=== PATIENT | male | born 1955 | race Caucasian/White ===

== ENCOUNTER → 2018-01-13 | Outpatient (CLI) | payer OTHER ==
[~2018-01-13] MED LIST: ACET325 PO; ALBU90OI INH; ASCO500 PO; ASCORBIC ACID PO; ASPI81CH PO; Amlodipine Besyl5 MG PO; Augmentin 875-1 EACH PO; BUSP5 PO; CITA20 PO; Cleocin HCl150 MG PO; Culturelle1 CAP PO; DEEP SEA44 ML; DOCU100 PO; DOXY100 PO; FERR325 PO; FISH1000 PO; FLUT220OIA INH; FURO20 PO; GLIP5 PO; HYDR1TAB94 PO; Humulin R500 UNIT/1 SC; INSDET100 SC; INSUL100I SC; INSULANPEN; LEVSOD100 PO; LISI20 PO; LOPE2C PO; METO50 PO; MOME220I INH; Neosporin + P28.3 GM TOP; Norco 5-325 Ta1 EACH PO; SANTYL30 GM TOP; SENN187 PO; SIMV10 PO; SITA100T2 PO; TEMA7.5 PO; TRAZ50 PO; VITAMIN D PO; [UNRECOGNIZED DRUG - OTHER] PO
[2018-01-13 11:24] LABS: Source, Urine Voided
[2018-01-13 14:21] LABS: Bilirubin, Urine Neg (Neg); Glucose Qualitative, Urine Neg (Neg); Ketones, Urine Neg (Neg); Leukocyte Esterase, Urine Neg (Neg); Nitrite, Urine Neg (Neg); Protein, Urine 2+ (Neg); Urobilinogen, Urine NORM (Normal)
[2018-01-13 14:35] LABS: Appearance, Urine Clear (Clear); Blood, Urine Neg (Neg); Color, Urine Yellow (P-Yellow); pH, Urine 6.5 (5.0-8.0)
[2018-01-13 14:40] LABS: Bacteria Few /hpf; Red Blood Cells, Urine 0-2 /hpf (0-2); Squamous Epithelial Cells Few /hpf (Few); White Blood Cells, Urine 0-2 /hpf (0-5)
== END | disposition home or self-care (01) ==
LOC: LAB 11:20
PROVIDERS: Family Medicine
DX: N39.0 Urinary tract infection, site not specified (principal)
CPT/HCPCS: 81001

== ENCOUNTER 2018-01-18 16:37 | Inpatient (IN) | payer OTHER ==
[~2018-01-18] VITALS: Ht 167.6 cm; Wt 113.7 kg
[~2018-01-18 16:37] MED LIST changes: -ASCO500 PO; -Cleocin HCl150 MG PO; -Culturelle1 CAP PO; -DEEP SEA44 ML; -DOXY100 PO; -HYDR1TAB94 PO; -Humulin R500 UNIT/1 SC; -INSDET100 SC; -MOME220I INH; -Neosporin + P28.3 GM TOP; -SANTYL30 GM TOP
[2018-01-18 18:02] LABS: BASOPHILS ABSOLUTE AUTO 0.09 K/mm3 (0.00-0.23); BASOPHILS PERCENT AUTO 1 % (0-2); EOSINOPHILS ABSOLUTE AUTO 0.37 K/mm3 (0.00-0.68); EOSINOPHILS PERCENT AUTO 3 % (0-6); Hematocrit 43.5 % (37.0-53.0); Hemoglobin 14.7 g/dL (13.5-17.5); IMMATURE GRAN PERCENT AUTO 1 % (0-1); LYMPHOCYTES ABSOLUTE AUTO 2.64 K/mm3 (0.84-5.20); LYMPHOCYTES PERCENT AUTO 24 % (21-46); MONOCYTES ABSOLUTE AUTO 0.93 K/mm3 (0.16-1.47); MONOCYTES PERCENT AUTO 8 % (4-13); Mean Corpuscular HGB 31.1 pg (26.0-34.0); Mean Corpuscular HGB Conc 33.8 g/dL (31.5-36.5); Mean Corpuscular Volume 92 fL (80-100); Mean Platelet Volume 9.5 fL (9.1-12.4); NEUTROPHILS ABSOLUTE AUTO 7.07 K/mm3 (1.96-9.15); NEUTROPHILS PERCENT AUTO 63 % (41-73); Platelet Count 172 K/mm3 (150-400); RDW Coefficient Variation 12.8 % (11.7-14.2); RDW Standard Deviation 43.1 fL (35.1-46.3); Red Blood Cell Count 4.73 M/mm3 (4.30-5.90)
[2018-01-18 21:23] LABS: Albumin, Blood 3.1 g/dL (3.4-5.0); Albumin/Globulin Ratio 0.7 (0.8-1.8); Bilirubin, Total 0.7 mg/dL (0.1-1.0); Bun/Creatinine Ratio 14.8 (12.0-20.0); Calcium, Blood 8.6 mg/dL (8.5-10.1); Creatinine, Blood 1.35 mg/dL (0.60-1.20); Globulin, Blood 4.5 g/dL (2.2-4.0); Potassium, Blood 4.6 mmol/L (3.5-5.5); Total Protein, Blood 7.6 g/dL (6.4-8.2)
[2018-01-19] MEDS ORDERED: ASCO500 PO (10:37)
[2018-01-19] MEDS ORDERED: DEEP SEA44 ML (10:40)
[2018-01-19] MEDS ORDERED: Neosporin + P28.3 GM TOP (10:40)
[2018-01-20 05:14] LABS: BASOPHILS ABSOLUTE AUTO 0.07 K/mm3 (0.00-0.23); BASOPHILS PERCENT AUTO 1 % (0-2); EOSINOPHILS PERCENT AUTO 4 % (0-6); Hematocrit 40.3 % (37.0-53.0); Hemoglobin 13.7 g/dL (13.5-17.5); IMMATURE GRAN ABSOLUTE AUTO 0.09 K/mm3 (0.00-0.10); IMMATURE GRAN PERCENT AUTO 1 % (0-1); LYMPHOCYTES ABSOLUTE AUTO 1.91 K/mm3 (0.84-5.20); LYMPHOCYTES PERCENT AUTO 25 % (21-46); MONOCYTES ABSOLUTE AUTO 0.71 K/mm3 (0.16-1.47); MONOCYTES PERCENT AUTO 9 % (4-13); Mean Corpuscular HGB 31.4 pg (26.0-34.0); Mean Corpuscular Volume 92 fL (80-100); Mean Platelet Volume 9.2 fL (9.1-12.4); NEUTROPHILS ABSOLUTE AUTO 4.56 K/mm3 (1.96-9.15); NEUTROPHILS PERCENT AUTO 60 % (41-73); Platelet Count 140 K/mm3 (150-400); RDW Coefficient Variation 12.6 % (11.7-14.2); RDW Standard Deviation 42.5 fL (35.1-46.3); Red Blood Cell Count 4.37 M/mm3 (4.30-5.90); White Blood Cell Count 7.64 K/mm3 (4.00-11.30)
[2018-01-20 05:41] LABS: Albumin, Blood 2.6 g/dL (3.4-5.0); Anion Gap 6 mmol/L (6-16); Blood Urea Nitrogen 18 mg/dL (8-24); CO2, Blood 26 mmol/L (21-32); Calcium, Blood 8.3 mg/dL (8.5-10.1); Chloride, Blood 104 mmol/L (98-108); Glomerular Filtration Rate >60 (60-); Glucose, Blood 100 mg/dL (70-99); Phosphorus, Blood 2.7 mg/dL (2.5-4.9); Potassium, Blood 4.5 mmol/L (3.5-5.5); Sodium, Blood 136 mmol/L (136-145)
[2018-01-20 06:03] LABS: Vancomycin, Trough 20.9 ug/mL (5.0-10.0)
[2018-01-21 05:38] LABS: BASOPHILS ABSOLUTE AUTO 0.05 K/mm3 (0.00-0.23); BASOPHILS PERCENT AUTO 1 % (0-2); EOSINOPHILS ABSOLUTE AUTO 0.27 K/mm3 (0.00-0.68); EOSINOPHILS PERCENT AUTO 5 % (0-6); Hematocrit 38.4 % (37.0-53.0); Hemoglobin 12.9 g/dL (13.5-17.5); IMMATURE GRAN ABSOLUTE AUTO 0.05 K/mm3 (0.00-0.10); IMMATURE GRAN PERCENT AUTO 1 % (0-1); LYMPHOCYTES ABSOLUTE AUTO 1.74 K/mm3 (0.84-5.20); LYMPHOCYTES PERCENT AUTO 29 % (21-46); MONOCYTES ABSOLUTE AUTO 0.55 K/mm3 (0.16-1.47); MONOCYTES PERCENT AUTO 9 % (4-13); Mean Corpuscular HGB 31.1 pg (26.0-34.0); Mean Corpuscular HGB Conc 33.6 g/dL (31.5-36.5); Mean Corpuscular Volume 93 fL (80-100); Mean Platelet Volume 9.2 fL (9.1-12.4); NEUTROPHILS ABSOLUTE AUTO 3.34 K/mm3 (1.96-9.15); NEUTROPHILS PERCENT AUTO 56 % (41-73); Platelet Count 142 K/mm3 (150-400); RDW Coefficient Variation 12.6 % (11.7-14.2); RDW Standard Deviation 42.9 fL (35.1-46.3); Red Blood Cell Count 4.15 M/mm3 (4.30-5.90)
[2018-01-21 06:00] LABS: Bun/Creatinine Ratio 12.9 (12.0-20.0); Calcium, Blood 8.2 mg/dL (8.5-10.1); Creatinine, Blood 1.32 mg/dL (0.60-1.20); Potassium, Blood 4.2 mmol/L (3.5-5.5)
[2018-01-22] MEDS ORDERED: SANTYL30 GM TOP (10:19)
[2018-01-22] MEDS ORDERED: INSDET100 SC (10:20)
[2018-01-22] MEDS ORDERED: HYDR1TAB94 PO (10:22)
[2018-01-22] MEDS ORDERED: Humulin R500 UNIT/1 SC (10:25)
[2018-01-22] MEDS ORDERED: MOME220I INH (10:26)
[2018-01-22] MEDS ORDERED: Cleocin HCl150 MG PO (10:27)
[2018-01-22] MEDS ORDERED: DOXY100 PO (10:28)
[2018-01-22] MEDS ORDERED: Culturelle1 CAP PO (10:30)
== END 2018-01-22 12:58 | disposition home health service (06) | DRG 603 ==
LOC: ER 16:37 → MEDS 21:01 → ENPENDDIS 01-22 10:13 → MEDS 01-22 12:58
PROVIDERS: Emergency Medicine; Internal Medicine; Physician Assistant
DX: L03.115 Cellulitis of right lower limb (principal); N17.9 Acute kidney failure, unspecified; Z68.41 Body mass index [BMI] 40.0-44.9, adult; F70 Mild intellectual disabilities; I10 Essential (primary) hypertension; E03.9 Hypothyroidism, unspecified; E78.5 Hyperlipidemia, unspecified; J45.909 Unspecified asthma, uncomplicated; E11.621 Type 2 diabetes mellitus with foot ulcer; L97.519 Non-pressure chronic ulcer of other part of right foot with unspecified severity; F32.9 Major depressive disorder, single episode, unspecified; E66.01 Morbid (severe) obesity due to excess calories; E11.42 Type 2 diabetes mellitus with diabetic polyneuropathy; E11.610 Type 2 diabetes mellitus with diabetic neuropathic arthropathy
CPT/HCPCS: 36415; 73630; 80048; 80053; 80069; 80202; 82947; 85025; 85651; 86140; 87070; 87075; 87205; 94640; 94760; 96365; 96366; 99285; A9270; J0696; J1650; J1815; J3370; J7050

== ENCOUNTER → 2020-09-03 | Outpatient (CLI) | payer OTHER ==
[~2020-09-03] MED LIST changes: +AMLO5 PO; +ASCO500 PO; +ATOR40TA PO; +Aspirin EC81 MG PO; +BASAGLAR K100 UNIT/1 SC; +BISA10S PR; +Cleocin HCl150 MG PO; +Culturelle1 CAP PO; +DEEP SEA44 ML; +DOXY100 PO; +Flovent 220 Ora12 GM INH; +HUMALOG KW100 UNIT/1; +HYDR1TAB94 PO; +Humulin R500 UNIT/1 SC; +INSDET100 SC; +METO10 PO; +MIRALAX17 GM PO; +MOME220I INH; +NYSTOP15 GM TOP; +Neosporin + P28.3 GM TOP; +PANT40 PO; +PROAIR DIGIHAL90 MCG; +RESVERATROL50 MG PO; +SANTYL30 GM TOP; +SENNA LAXATIVE8.6 MG PO; +Zestril30 MG PO
[2020-09-03 19:02] LABS: Hematocrit 41.7 % (37.0-53.0); Hemoglobin 13.5 g/dL (13.5-17.5); Mean Corpuscular HGB 30.3 pg (26.0-34.0); Mean Corpuscular HGB Conc 32.4 g/dL (31.5-36.5); Mean Corpuscular Volume 94 fL (80-100); Mean Platelet Volume 9.7 fL (9.1-12.4); Platelet Count 128 K/mm3 (150-400); RDW Coefficient Variation 13.2 % (11.7-14.2); RDW Standard Deviation 44.9 fL (35.1-46.3); Red Blood Cell Count 4.45 M/mm3 (4.30-5.90); White Blood Cell Count 7.74 K/mm3 (4.00-11.30)
[2020-09-03 19:15] LABS: Alanine Aminotransfer (ALT/SGP 22 U/L (12-78); Albumin, Blood 3.1 g/dL (3.4-5.0); Albumin/Globulin Ratio 0.8 (0.8-1.8); Alk Phos 134 U/L (50-136); Anion Gap 4 mmol/L (6-16); Aspartate Aminotrans (AST/SGOT 14 U/L (12-37); Bilirubin, Total 0.5 mg/dL (0.1-1.0); Blood Urea Nitrogen 17 mg/dL (8-24); Bun/Creatinine Ratio 15.3 (12.0-20.0); CO2, Blood 32 mmol/L (21-32); Calcium, Blood 8.8 mg/dL (8.5-10.1); Chloride, Blood 106 mmol/L (98-108); Creatinine, Blood 1.11 mg/dL (0.60-1.20); Globulin, Blood 3.7 g/dL (2.2-4.0); Glomerular Filtration Rate >60 (60-); Glucose, Blood 195 mg/dL (70-99); Potassium, Blood 4.1 mmol/L (3.5-5.5); Sodium, Blood 142 mmol/L (136-145); Total Protein, Blood 6.8 g/dL (6.4-8.2)
== END | disposition home or self-care (01) ==
LOC: EDSTATUS 11:49 → LAB UVN 17:58
PROVIDERS: Internal Medicine Cardiovascular Disease
DX: U07.1 COVID-19 (principal)
CPT/HCPCS: 80053; 82306; 85027

== ENCOUNTER → 2020-11-01 | Outpatient (CLI) | payer OTHER ==
[~2020-11-01] MED LIST changes: +ABAT250V; +ATORVASTATIN CA40 M1 PO; +BISA10S; +METO5A PO; +NOVOLOG FL100 UNIT/3 SC; +RESVERATROL50 MG; +SITA100T2
== END | disposition home or self-care (01) ==
LOC: LAB UVN 07:20 → EDSTATUS 12:38
DX: E55.9 Vitamin D deficiency, unspecified (principal)
CPT/HCPCS: 82306

== ENCOUNTER → 2020-12-03 | Outpatient (CLI) | payer OTHER | END | disposition home or self-care (01) | LOC: LAB UVN 08:34 → LAB 08:34 → EDSTATUS 12:52 | DX: E55.9 Vitamin D deficiency, unspecified (principal) | CPT/HCPCS: 82306 ==

== ENCOUNTER → 2021-01-29 | Outpatient (CLI) | payer OTHER ==
[2021-01-29 06:10] LABS: Hematocrit 38.8 % (37.0-53.0); Hemoglobin 13.3 g/dL (13.5-17.5); Mean Corpuscular HGB 31.1 pg (26.0-34.0); Mean Corpuscular HGB Conc 34.3 g/dL (31.5-36.5); Mean Corpuscular Volume 91 fL (80-100); Mean Platelet Volume 9.6 fL (9.1-12.4); Platelet Count 104 K/mm3 (150-400); RDW Coefficient Variation 13.2 % (11.7-14.2); RDW Standard Deviation 43.7 fL (35.1-46.3); Red Blood Cell Count 4.27 M/mm3 (4.30-5.90)
[2021-01-29 06:26] LABS: Anion Gap 3 mmol/L (6-16); Blood Urea Nitrogen 17 mg/dL (8-24); Bun/Creatinine Ratio 14.5 (12.0-20.0); CO2, Blood 31 mmol/L (21-32); Calcium, Blood 7.8 mg/dL (8.5-10.1); Chloride, Blood 109 mmol/L (98-108); Creatinine, Blood 1.17 mg/dL (0.60-1.20); Glomerular Filtration Rate >60 (60-); Glucose, Blood 112 mg/dL (70-99); Sodium, Blood 143 mmol/L (136-145)
== END | disposition home or self-care (01) ==
LOC: LAB UVN 05:00 → EDSTATUS 08:12
PROVIDERS: Internal Medicine
DX: E11.9 Type 2 diabetes mellitus without complications (principal); E03.9 Hypothyroidism, unspecified; D64.9 Anemia, unspecified
CPT/HCPCS: 80048; 83036; 84443; 85027

== ENCOUNTER → 2021-06-26 | Outpatient (CLI) | payer OTHER ==
[2021-06-26 12:42] LABS: Appearance, Urine Hazy (Clear); Bilirubin, Urine Neg (Neg); Blood, Urine 5+ (Neg); Color, Urine Amber (P-Yellow); Glucose Qualitative, Urine 3+ (Neg); Ketones, Urine Neg (Neg); Leukocyte Esterase, Urine Neg (Neg); Nitrite, Urine Neg (Neg); Protein, Urine 3+ (Neg); Specific Gravity, Urine 1.025 (1.003-1.022); Urobilinogen, Urine 1+ (Normal)
[2021-06-26 13:15] LABS: Bacteria Not Seen /hpf; Red Blood Cells, Urine TNTC /hpf (0-2); Squamous Epithelial Cells Not Seen /hpf (Few); White Blood Cells, Urine Not Seen /hpf (0-5)
== END | disposition home or self-care (01) ==
LOC: EDSTATUS 10:23 → LAB UVN 12:28
PROVIDERS: Internal Medicine
DX: N39.0 Urinary tract infection, site not specified (principal)
CPT/HCPCS: 81001; 87086

== ENCOUNTER 2021-06-28 09:55 | Emergency (ER) | payer OTHER ==
[~2021-06-28] VITALS: Ht 180.3 cm; Wt 136.1 kg
[2021-06-28 11:00] LABS: BASOPHILS ABSOLUTE AUTO 0.04 K/mm3 (0.00-0.23); BASOPHILS PERCENT AUTO 0 % (0-2); EOSINOPHILS PERCENT AUTO 2 % (0-6); Hematocrit 40.6 % (37.0-53.0); IMMATURE GRAN ABSOLUTE AUTO 0.08 K/mm3 (0.00-0.10); IMMATURE GRAN PERCENT AUTO 1 % (0-1); LYMPHOCYTES ABSOLUTE AUTO 1.46 K/mm3 (0.84-5.20); LYMPHOCYTES PERCENT AUTO 14 % (21-46); MONOCYTES ABSOLUTE AUTO 0.85 K/mm3 (0.16-1.47); MONOCYTES PERCENT AUTO 8 % (4-13); Mean Corpuscular HGB 31.6 pg (26.0-34.0); Mean Corpuscular HGB Conc 34.5 g/dL (31.5-36.5); Mean Corpuscular Volume 92 fL (80-100); Mean Platelet Volume 9.5 fL (9.1-12.4); NEUTROPHILS ABSOLUTE AUTO 7.82 K/mm3 (1.96-9.15); NEUTROPHILS PERCENT AUTO 75 % (41-73); Platelet Count 113 K/mm3 (150-400); RDW Coefficient Variation 13.2 % (11.7-14.2); RDW Standard Deviation 44.3 fL (35.1-46.3); Red Blood Cell Count 4.43 M/mm3 (4.30-5.90); White Blood Cell Count 10.45 K/mm3 (4.00-11.30)
[2021-06-28 11:20] LABS: International Normalized Ratio 1.07; Prothrombin Time Results 11.5 Sec (9.7-11.5)
[2021-06-28 11:29] LABS: Albumin, Blood 2.7 g/dL (3.4-5.0); Albumin/Globulin Ratio 0.7 (0.8-1.8); Bilirubin, Direct 0.3 mg/dL (0.0-0.3); Bilirubin, Indirect 0.7 mg/dL (0.1-0.7); Bun/Creatinine Ratio 14.5 (12.0-20.0); Calcium, Blood 7.8 mg/dL (8.5-10.1); Creatinine, Blood 1.52 mg/dL (0.60-1.20); Globulin, Blood 3.9 g/dL (2.2-4.0); Potassium, Blood 4.1 mmol/L (3.5-5.5); Total Protein, Blood 6.6 g/dL (6.4-8.2)
[2021-06-28 13:22] LABS: Source, Urine Clean Catch
[2021-06-28 13:30] LABS: Appearance, Urine Cloudy (Clear); Blood, Urine 5+ (Neg); Color, Urine Red (P-Yellow); Glucose Qualitative, Urine Neg (Neg); Ketones, Urine Neg (Neg); Leukocyte Esterase, Urine 2+ (Neg); Nitrite, Urine Pos (Neg); Protein, Urine 4+ (Neg); Urobilinogen, Urine 1+ (Normal)
[2021-06-28 14:12] LABS: Bilirubin, Urine 1+ (Neg)
[2021-06-28 14:13] LABS: Red Blood Cells, Urine TNTC /hpf (0-2)
[2021-06-28 14:15] LABS: Amorphous Light (0-Heavy); Bacteria Few /hpf; Squamous Epithelial Cells Few /hpf (Few)
== END 2021-06-28 16:11 ==
LOC: ER 09:55
PROVIDERS: Student in an Organized Health Care Education/Training Program
DX: R31.9 Hematuria, unspecified (principal); R33.9 Retention of urine, unspecified; N32.9 Bladder disorder, unspecified; I10 Essential (primary) hypertension; E11.9 Type 2 diabetes mellitus without complications; K21.9 Gastro-esophageal reflux disease without esophagitis; J44.9 Chronic obstructive pulmonary disease, unspecified; Z79.899 Other long term (current) drug therapy; Z79.82 Long term (current) use of aspirin; Z79.4 Long term (current) use of insulin; Z86.73 Personal history of transient ischemic attack (TIA), and cerebral infarction without residual deficits
CPT/HCPCS: 51700; 51702; 74177; 80048; 80076; 81001; 83605; 83690; 85025; 85610; 85730; 99284-25; Q9967

== ENCOUNTER → 2021-06-28 | Outpatient (CLI) | payer OTHER ==
[2021-06-28 02:21] LABS: BASOPHILS ABSOLUTE AUTO 0.05 K/mm3 (0.00-0.23); BASOPHILS PERCENT AUTO 0 % (0-2); EOSINOPHILS ABSOLUTE AUTO 0.19 K/mm3 (0.00-0.68); EOSINOPHILS PERCENT AUTO 2 % (0-6); Hematocrit 40.7 % (37.0-53.0); Hemoglobin 14.3 g/dL (13.5-17.5); IMMATURE GRAN ABSOLUTE AUTO 0.09 K/mm3 (0.00-0.10); IMMATURE GRAN PERCENT AUTO 1 % (0-1); LYMPHOCYTES ABSOLUTE AUTO 1.25 K/mm3 (0.84-5.20); LYMPHOCYTES PERCENT AUTO 11 % (21-46); MONOCYTES ABSOLUTE AUTO 0.82 K/mm3 (0.16-1.47); MONOCYTES PERCENT AUTO 7 % (4-13); Mean Corpuscular HGB 31.6 pg (26.0-34.0); Mean Corpuscular HGB Conc 35.1 g/dL (31.5-36.5); Mean Corpuscular Volume 90 fL (80-100); Mean Platelet Volume 9.6 fL (9.1-12.4); NEUTROPHILS ABSOLUTE AUTO 9.42 K/mm3 (1.96-9.15); NEUTROPHILS PERCENT AUTO 80 % (41-73); Platelet Count 118 K/mm3 (150-400); RDW Coefficient Variation 12.9 % (11.7-14.2); RDW Standard Deviation 42.5 fL (35.1-46.3); Red Blood Cell Count 4.53 M/mm3 (4.30-5.90); White Blood Cell Count 11.82 K/mm3 (4.00-11.30)
[2021-06-28 02:38] LABS: Albumin, Blood 2.9 g/dL (3.4-5.0); Albumin/Globulin Ratio 0.7 (0.8-1.8); Bilirubin, Total 0.9 mg/dL (0.1-1.0); Bun/Creatinine Ratio 16.1 (12.0-20.0); Calcium, Blood 8.2 mg/dL (8.5-10.1); Creatinine, Blood 1.24 mg/dL (0.60-1.20); Globulin, Blood 3.9 g/dL (2.2-4.0); Total Protein, Blood 6.8 g/dL (6.4-8.2)
== END | disposition home or self-care (01) ==
LOC: LAB UVN 02:14 → EDSTATUS 10:24
PROVIDERS: Internal Medicine
DX: I69.354 Hemiplegia and hemiparesis following cerebral infarction affecting left non-dominant side (principal)
CPT/HCPCS: 80053; 85025

== ENCOUNTER → 2021-07-08 | Outpatient (CLI) | payer OTHER ==
[2021-07-08 16:17] LABS: BASOPHILS ABSOLUTE AUTO 0.05 K/mm3 (0.00-0.23); BASOPHILS PERCENT AUTO 1 % (0-2); EOSINOPHILS ABSOLUTE AUTO 0.21 K/mm3 (0.00-0.68); EOSINOPHILS PERCENT AUTO 2 % (0-6); Hematocrit 38.9 % (37.0-53.0); Hemoglobin 13.3 g/dL (13.5-17.5); IMMATURE GRAN ABSOLUTE AUTO 0.11 K/mm3 (0.00-0.10); IMMATURE GRAN PERCENT AUTO 1 % (0-1); LYMPHOCYTES ABSOLUTE AUTO 1.53 K/mm3 (0.84-5.20); LYMPHOCYTES PERCENT AUTO 17 % (21-46); MONOCYTES ABSOLUTE AUTO 0.68 K/mm3 (0.16-1.47); MONOCYTES PERCENT AUTO 8 % (4-13); Mean Corpuscular HGB 31.2 pg (26.0-34.0); Mean Corpuscular HGB Conc 34.2 g/dL (31.5-36.5); Mean Corpuscular Volume 91 fL (80-100); Mean Platelet Volume 9.7 fL (9.1-12.4); NEUTROPHILS PERCENT AUTO 72 % (41-73); Platelet Count 157 K/mm3 (150-400); RDW Coefficient Variation 13.4 % (11.7-14.2); RDW Standard Deviation 45.1 fL (35.1-46.3); Red Blood Cell Count 4.26 M/mm3 (4.30-5.90); White Blood Cell Count 9.08 K/mm3 (4.00-11.30)
[2021-07-08 16:43] LABS: Bun/Creatinine Ratio 15.2 (12.0-20.0); Calcium, Blood 8.1 mg/dL (8.5-10.1); Creatinine, Blood 1.64 mg/dL (0.60-1.20); Potassium, Blood 5.2 mmol/L (3.5-5.5)
== END | disposition home or self-care (01) ==
LOC: EDSTATUS 10:26 → LAB UVN 16:07
PROVIDERS: Internal Medicine
DX: I69.354 Hemiplegia and hemiparesis following cerebral infarction affecting left non-dominant side (principal); R60.9 Edema, unspecified
CPT/HCPCS: 80048; 85025

== ENCOUNTER → 2021-07-15 | Outpatient (CLI) | payer OTHER ==
[2021-07-15 11:28] LABS: Anion Gap 5 mmol/L (6-16); Blood Urea Nitrogen 20 mg/dL (8-24); Bun/Creatinine Ratio 17.7 (12.0-20.0); CO2, Blood 28 mmol/L (21-32); Chloride, Blood 103 mmol/L (98-108); Creatinine, Blood 1.13 mg/dL (0.60-1.20); Glomerular Filtration Rate >60 (60-); Glucose, Blood 140 mg/dL (70-99); Potassium, Blood 3.9 mmol/L (3.5-5.5); Sodium, Blood 136 mmol/L (136-145)
== END | disposition home or self-care (01) ==
LOC: LAB UVN 09:20 → EDSTATUS 10:27
PROVIDERS: Internal Medicine
DX: I69.354 Hemiplegia and hemiparesis following cerebral infarction affecting left non-dominant side (principal)
CPT/HCPCS: 80048

== ENCOUNTER 2021-08-25 05:27 | Emergency (ER) | payer OTHER ==
[~2021-08-25] VITALS: Ht 175.3 cm; Wt 90.7 kg
== END 2021-08-25 10:29 | disposition home or self-care (01) ==
LOC: ER 05:27
DX: S06.9X9A Unspecified intracranial injury with loss of consciousness of unspecified duration, initial encounter (principal); S01.312A Laceration without foreign body of left ear, initial encounter; E11.9 Type 2 diabetes mellitus without complications; K21.9 Gastro-esophageal reflux disease without esophagitis; E78.00 Pure hypercholesterolemia, unspecified; I10 Essential (primary) hypertension; J44.9 Chronic obstructive pulmonary disease, unspecified; Z79.899 Other long term (current) drug therapy; W06.XXXA Fall from bed, initial encounter
CPT/HCPCS: 12011; 70450; 72125; 99284-25

== ENCOUNTER → 2021-11-19 | Outpatient (CLI) | payer OTHER ==
[2021-11-19 07:01] LABS: Albumin, Blood 2.9 g/dL (3.4-5.0); Albumin/Globulin Ratio 0.6 (0.8-1.8); Bilirubin, Total 0.4 mg/dL (0.1-1.0); Bun/Creatinine Ratio 24.2 (12.0-20.0); Calcium, Blood 8.7 mg/dL (8.5-10.1); Creatinine, Blood 2.15 mg/dL (0.60-1.20); Globulin, Blood 4.5 g/dL (2.2-4.0); Potassium, Blood 5.3 mmol/L (3.5-5.5); Thyroid Stimulating Hormone 3.99 uIU/mL (0.360-4.800); Total Protein, Blood 7.4 g/dL (6.4-8.2)
== END | disposition home or self-care (01) ==
LOC: LAB UVN 05:30 → EDSTATUS 11:04
PROVIDERS: Internal Medicine
DX: N18.9 Chronic kidney disease, unspecified (principal); E78.5 Hyperlipidemia, unspecified
CPT/HCPCS: 80053; 84443

== ENCOUNTER → 2021-12-05 | Outpatient (CLI) | payer OTHER ==
[2021-12-05 21:53] LABS: Bilirubin, Urine Neg (Neg); Blood, Urine 2+ (Neg); Glucose Qualitative, Urine Neg (Neg); Ketones, Urine Neg (Neg); Leukocyte Esterase, Urine 1+ (Neg); Nitrite, Urine Neg (Neg); Protein, Urine 2+ (Neg); Urobilinogen, Urine 1+ (Normal)
[2021-12-05 22:43] LABS: Color, Urine Pale Yellow (P-Yellow)
[2021-12-05 22:44] LABS: Appearance, Urine Hazy (Clear); Bacteria Few /hpf; Squamous Epithelial Cells Rare /hpf (Few)
== END | disposition home or self-care (01) ==
LOC: EDSTATUS 11:05 → LAB UVN 20:00
PROVIDERS: Internal Medicine
DX: N39.0 Urinary tract infection, site not specified (principal)
CPT/HCPCS: 81001; 87086

== ENCOUNTER → 2021-12-09 | Outpatient (CLI) | payer OTHER ==
[2021-12-09 16:02] LABS: Hematocrit 41.1 % (37.0-53.0); Hemoglobin 13.8 g/dL (13.5-17.5); Mean Corpuscular HGB 30.5 pg (26.0-34.0); Mean Corpuscular HGB Conc 33.6 g/dL (31.5-36.5); Mean Corpuscular Volume 91 fL (80-100); Mean Platelet Volume 9.9 fL (9.1-12.4); Platelet Count 147 K/mm3 (150-400); RDW Coefficient Variation 13.8 % (11.7-14.2); RDW Standard Deviation 46.2 fL (35.1-46.3); Red Blood Cell Count 4.52 M/mm3 (4.30-5.90); White Blood Cell Count 7.81 K/mm3 (4.00-11.30)
[2021-12-09 16:56] LABS: Alanine Aminotransfer (ALT/SGP 17 U/L (12-78); Albumin, Blood 2.8 g/dL (3.4-5.0); Albumin/Globulin Ratio 0.8 (0.8-1.8); Alk Phos 120 U/L (50-136); Anion Gap 4 mmol/L (6-16); Aspartate Aminotrans (AST/SGOT 9 U/L (12-37); Bilirubin, Total 0.6 mg/dL (0.1-1.0); Blood Urea Nitrogen 19 mg/dL (8-24); Bun/Creatinine Ratio 17.1 (12.0-20.0); CO2, Blood 29 mmol/L (21-32); Calcium, Blood 8.2 mg/dL (8.5-10.1); Chloride, Blood 104 mmol/L (98-108); Creatinine, Blood 1.11 mg/dL (0.60-1.20); Globulin, Blood 3.5 g/dL (2.2-4.0); Glomerular Filtration Rate >60 (60-); Glucose, Blood 174 mg/dL (70-99); Potassium, Blood 4.1 mmol/L (3.5-5.5); Sodium, Blood 137 mmol/L (136-145); Total Protein, Blood 6.3 g/dL (6.4-8.2)
== END | disposition home or self-care (01) ==
LOC: EDSTATUS 11:07 → LAB UVN 15:11
PROVIDERS: Internal Medicine
DX: I10 Essential (primary) hypertension (principal); R93.9 Diagnostic imaging inconclusive due to excess body fat of patient
CPT/HCPCS: 80053; 85027

== ENCOUNTER → 2022-03-11 | Outpatient (CLI) | payer OTHER ==
[2022-03-11 17:21] LABS: Source, Urine Clean Catch
[2022-03-11 17:36] LABS: Appearance, Urine Clear (Clear); Bilirubin, Urine Neg (Neg); Blood, Urine Neg (Neg); Color, Urine Yellow (P-Yellow); Glucose Qualitative, Urine Neg (Neg); Ketones, Urine Neg (Neg); Leukocyte Esterase, Urine Neg (Neg); Nitrite, Urine Neg (Neg); Protein, Urine 2+ (Neg); Urobilinogen, Urine 2+ (Normal)
[2022-03-11 18:06] LABS: Bacteria Rare /hpf; Red Blood Cells, Urine 0-2 /hpf (0-2); Squamous Epithelial Cells Rare /hpf (Few); White Blood Cells, Urine 0-2 /hpf (0-5)
== END | disposition home or self-care (01) ==
LOC: EDSTATUS 12:35 → LAB UVN 17:20
PROVIDERS: Internal Medicine
DX: N39.0 Urinary tract infection, site not specified (principal)
CPT/HCPCS: 81001

== ENCOUNTER 2023-08-12 19:21 | Emergency (ER) | payer OTHER ==
[~2023-08-12] VITALS: Ht 170.2 cm; Wt 97.5 kg
[2023-08-12 19:25] VITALS: BP 153/75
== END 2023-08-12 20:37 | disposition home or self-care (01) ==
LOC: ER 19:21
DX: S91.311A Laceration without foreign body, right foot, initial encounter (principal); W22.8XXA Striking against or struck by other objects, initial encounter; Z79.899 Other long term (current) drug therapy; Z79.4 Long term (current) use of insulin; Z79.82 Long term (current) use of aspirin; I10 Essential (primary) hypertension; E11.9 Type 2 diabetes mellitus without complications; K21.9 Gastro-esophageal reflux disease without esophagitis; E78.00 Pure hypercholesterolemia, unspecified; J44.9 Chronic obstructive pulmonary disease, unspecified
CPT/HCPCS: 12001; 99283-25

== ENCOUNTER 2023-10-24 18:15 | Emergency (ER) | payer OTHER ==
[~2023-10-24] VITALS: Ht 177.8 cm; Wt 97.5 kg
[2023-10-24 19:56] VITALS: BP 126/86
== END 2023-10-24 21:38 | disposition home or self-care (01) ==
LOC: ER 18:15
DX: S90.112A Contusion of left great toe without damage to nail, initial encounter (principal); S90.111A Contusion of right great toe without damage to nail, initial encounter; W06.XXXA Fall from bed, initial encounter; Z79.899 Other long term (current) drug therapy; Z79.82 Long term (current) use of aspirin; Z79.4 Long term (current) use of insulin; I10 Essential (primary) hypertension; E11.9 Type 2 diabetes mellitus without complications; K21.9 Gastro-esophageal reflux disease without esophagitis; E78.00 Pure hypercholesterolemia, unspecified; J44.9 Chronic obstructive pulmonary disease, unspecified
CPT/HCPCS: 73620; 99285-25

== ENCOUNTER 2024-11-13 23:19 | Inpatient (IN) | payer OTHER ==
[~2024-11-13] VITALS: Ht 182.9 cm; Wt 124.6 kg
[2024-11-13] MEDS ORDERED: NS 1,000 ML IV ONE (23:43)
[2024-11-13 23:44] LABS: BASOPHILS ABSOLUTE AUTO 0.07 K/mm3 (0.00-0.23); BASOPHILS PERCENT AUTO 0 % (0-2); EOSINOPHILS ABSOLUTE AUTO 0.01 K/mm3 (0.00-0.68); EOSINOPHILS PERCENT AUTO 0 % (0-6); Hematocrit 47.9 % (37.0-53.0); Hemoglobin 15.9 g/dL (13.5-17.5); IMMATURE GRAN ABSOLUTE AUTO 0.19 K/mm3 (0.00-0.10); IMMATURE GRAN PERCENT AUTO 1 % (0-1); LYMPHOCYTES ABSOLUTE AUTO 1.39 K/mm3 (0.84-5.20); LYMPHOCYTES PERCENT AUTO 6 % (21-46); MONOCYTES ABSOLUTE AUTO 1.31 K/mm3 (0.16-1.47); MONOCYTES PERCENT AUTO 5 % (4-13); Mean Corpuscular HGB 30.3 pg (26.0-34.0); Mean Corpuscular HGB Conc 33.2 g/dL (31.5-36.5); Mean Corpuscular Volume 91 fL (80-100); Mean Platelet Volume 9.7 fL (9.1-12.4); NEUTROPHILS ABSOLUTE AUTO 21.39 K/mm3 (1.96-9.15); NEUTROPHILS PERCENT AUTO 88 % (41-73); Platelet Count 190 K/mm3 (150-400); RDW Coefficient Variation 13.9 % (11.7-14.2); RDW Standard Deviation 46.7 fL (35.1-46.3); Red Blood Cell Count 5.24 M/mm3 (4.30-5.90); White Blood Cell Count 24.36 K/mm3 (4.00-11.30)
[2024-11-13] MEDS ORDERED: NS 1,000 ML IV SCH (23:45)
[2024-11-14] VITALS (30 sets, daily range): BP systolic 80–132; BP diastolic 40–78
[2024-11-14 00:04] LABS: Albumin/Globulin Ratio 0.7 (0.8-1.8); Bilirubin, Total 0.6 mg/dL (0.1-1.0); Bun/Creatinine Ratio 23.8 (12.0-20.0); Creatinine, Blood 2.48 mg/dL (0.60-1.20); Globulin, Blood 4.2 g/dL (2.2-4.0); Potassium, Blood 4.6 mmol/L (3.5-5.5); Total Protein, Blood 7.2 g/dL (6.4-8.2)
[2024-11-14 00:38] LABS: International Normalized Ratio 1.06; Prothrombin Time Results 11.3 Sec (9.7-11.5)
[2024-11-14 02:30] LABS: Source, Urine Voided
[2024-11-14] MEDS ORDERED: Piperacillin/Tazobactam Sod 4.5 GM in NS 100 ML IV ONE (02:30)
[2024-11-14 02:36] LABS: Bilirubin, Urine Neg (Neg); Blood, Urine 4+ (Neg); Glucose Qualitative, Urine 2+ (Neg); Ketones, Urine Neg (Neg); Leukocyte Esterase, Urine Neg (Neg); Nitrite, Urine Neg (Neg); Protein, Urine 3+ (Neg); Urobilinogen, Urine 1+ (Normal)
[2024-11-14] MEDS ORDERED: FentaNYL Citrate 50 MCG/ML 2 ML Injection IV PRN ×2 (02:45→08:00)
[2024-11-14 02:46] LABS: Appearance, Urine Clear (Clear); Bacteria Not Seen /hpf; Color, Urine Yellow (P-Yellow); Red Blood Cells, Urine 25-50 /hpf (0-2); Squamous Epithelial Cells Not Seen /hpf (Few); White Blood Cells, Urine Not Seen /hpf (0-5)
[2024-11-14] MEDS ORDERED: Pantoprazole Sodium 40 MG in NS 50 ML IV SCH (03:00)
[2024-11-14] MEDS ORDERED: METF500 PO (03:15)
[2024-11-14] MEDS ORDERED: PARO20 PO (03:16)
[2024-11-14] MEDS ORDERED: INSULANPEN SC (03:18)
[2024-11-14] MEDS ORDERED: FURO20 PO (04:04)
[2024-11-14] MEDS ORDERED: MELA3 PO (04:05)
[2024-11-14] MEDS ORDERED: MIRALAX17 GM PO (04:06)
[2024-11-14] MEDS ORDERED: LIQUICAL PLUS480 ML PO (04:07)
[2024-11-14] MEDS ORDERED: ONDA4ODT MM (04:08)
[2024-11-14] MEDS ORDERED: BISA10S PR (04:08)
[2024-11-14] MEDS ORDERED: SENN187 PO (04:09)
[2024-11-14] MEDS ORDERED: Lactated Ringer's 1,000 ML IV SCH ×3 (04:15→17:20)
[2024-11-14] MEDS ORDERED: Ondansetron HCl 2 MG / ML 2ML Vial IV PRN (05:45)
--- NOTE | 2024-11-14 05:53 | NUR ---
ADMIT SHIFT SUMMARY PATIENT IS ALERT BUT NOT ORIENTED. PATIENT HAS HAD NO ACUTE EVENTS THIS SHIFT. PATIENT HAS REPORTED PAIN THIS SHIFT. MEDICATED PER EMAR. IV FLUIDS INFUSED ORDERED. PATIENT HAS NOT ENDORSED SOB, NAUSEA, OR VOMITTING. BED IN LOCKED AND LOWEST POSITION. CALL LIGHT IN PLACE.
[2024-11-14] MEDS ORDERED: Insulin Human Lispro 100 Units/ML 3ML Syringe SC SCH ×3 (06:00→16:30)
[2024-11-14] MEDS ORDERED: Bisacodyl 10 MG Supp PR PRN (06:55)
[2024-11-14] MEDS ORDERED: Sennosides 8.6 MG Tab PO PRN (06:55)
[2024-11-14] MEDS ORDERED: Acetaminophen 325 MG TABLET PO PRN (07:00)
--- NOTE | 2024-11-14 07:44 | NUR ---
pt hypotensive, map . dr. carroll notified, awaiting orders
[2024-11-14] MEDS ORDERED: Vancomycin HCL 2,500 MG in NS 500 ML IV ONE (07:50)
[2024-11-14] MEDS ORDERED: Ampicillin Sod/Sulbactam Sod 3 GM in NS 100 ML IV SCH (08:00)
[2024-11-14 08:16] LABS: BASOPHILS ABSOLUTE AUTO 0.08 K/mm3 (0.00-0.23); BASOPHILS PERCENT AUTO 0 % (0-2); EOSINOPHILS ABSOLUTE AUTO 0.02 K/mm3 (0.00-0.68); EOSINOPHILS PERCENT AUTO 0 % (0-6); Hematocrit 46.2 % (37.0-53.0); Hemoglobin 15.5 g/dL (13.5-17.5); IMMATURE GRAN ABSOLUTE AUTO 0.15 K/mm3 (0.00-0.10); IMMATURE GRAN PERCENT AUTO 1 % (0-1); LYMPHOCYTES ABSOLUTE AUTO 1.17 K/mm3 (0.84-5.20); LYMPHOCYTES PERCENT AUTO 5 % (21-46); MONOCYTES ABSOLUTE AUTO 1.39 K/mm3 (0.16-1.47); MONOCYTES PERCENT AUTO 6 % (4-13); Mean Corpuscular HGB 30.9 pg (26.0-34.0); Mean Corpuscular HGB Conc 33.5 g/dL (31.5-36.5); Mean Corpuscular Volume 92 fL (80-100); Mean Platelet Volume 9.9 fL (9.1-12.4); NEUTROPHILS ABSOLUTE AUTO 21.25 K/mm3 (1.96-9.15); NEUTROPHILS PERCENT AUTO 88 % (41-73); Platelet Count 163 K/mm3 (150-400); RDW Coefficient Variation 14.1 % (11.7-14.2); RDW Standard Deviation 47.5 fL (35.1-46.3); Red Blood Cell Count 5.02 M/mm3 (4.30-5.90); White Blood Cell Count 24.06 K/mm3 (4.00-11.30)
[2024-11-14 08:40] LABS: Albumin, Blood 2.7 g/dL (3.4-5.0); Albumin/Globulin Ratio 0.7 (0.8-1.8); Bilirubin, Total 0.7 mg/dL (0.1-1.0); Calcium, Blood 8.7 mg/dL (8.5-10.1); Creatinine, Blood 2.24 mg/dL (0.60-1.20); Globulin, Blood 3.9 g/dL (2.2-4.0); Potassium, Blood 4.3 mmol/L (3.5-5.5); Total Protein, Blood 6.6 g/dL (6.4-8.2)
[2024-11-14] MEDS ORDERED: Aspirin 81 MG TabEC PO SCH (09:00)
[2024-11-14] MEDS ORDERED: PARoxetine HCl 20 MG Tab PO SCH (09:00)
[2024-11-14] MEDS ORDERED: AmLODIPine Besylate 5 MG Tab PO SCH (09:00)
[2024-11-14] MEDS ORDERED: Furosemide 20 MG Tab PO SCH (09:00)
[2024-11-14] MEDS ORDERED: Polyethylene Glycol 3350 17 gm PO SCH (09:00)
--- NOTE | 2024-11-14 09:55 | NUR ---
pt hypotensive post 250 bolus, per dr. carroll, give 2.5mg midodrine,
[2024-11-14] MEDS ORDERED: Lactated Ringer's 250 ML IV ONE (10:10)
[2024-11-14] MEDS ORDERED: Meropenem 2,000 MG in NS 250 ML IV SCH (10:51)
[2024-11-14] MEDS ORDERED: Midodrine 2.5 MG Tab PO SCH ×2 (11:00)
--- NOTE | 2024-11-14 11:11 | NUR ---
ICU TRANSFER, PT TRANSFERRED TO ICU, BP MAP <60. TIFFANIE PATRICIA AT BEDSIDE, PLACED ON 3L NC, PT BECAME SOMULENT DURING QUESTIONING, PT REPORTED DIZZINESS. PT BECAME DIFFICULT TO ARROUSE, AT THIS TIME MD ORDER TO TRANSFER TO ICU FOR BETTER MANAGEMENT. REPORT GIVEN AT BEDSIDE.
[2024-11-14 11:57] LABS: Hematocrit 45.2 % (37.0-53.0); Hemoglobin 15.1 g/dL (13.5-17.5)
--- NOTE | 2024-11-14 12:01 | NUR ---
TRANSFER PT RECEIVED FROM MEDICAL FLOOR. PT AWAKE, ANSWERS YES OR NO TO QUESTIONS. TRANSFERRED PT TO BED, BOLUS INFUSING. MAP CURRENTLY ABOVE 65, HR 80S. SPO2 99% SO TITRATED OXYGEN OFF AND NOW 94% ON RA. PT'S BROTHER CALLED AND UPDATED ON PT TRANSFER.
[2024-11-14] MEDS ORDERED: Lactated Ringer's 1,000 ML IV ONE (13:42)
[2024-11-14] MEDS ORDERED: NS 1,000 ML IV ONE (16:56)
[2024-11-14] MEDS ORDERED: NS 500 ML IV ONE (17:15)
--- NOTE | 2024-11-14 17:52 | NUR ---
REASSESSMENT PT HAS BEEN RESTING IN BED SINCE ARRIVAL. HE OPENS EYES TO VOICE AND ANSWERS YES/NO QUESTIONS. HIS LUNGS ARE CLEARING, SNORING WHEN AUSCULTATED. HE HAD SOME SPO2 DROPS TO THE 60S WHILE SLEEPING THAT QUICKLY RETURNED UP TO 90%. 3L/NC PLACED ON PT AND HE ONLY DROPPED TO THE 80S AFTER THAT. SR WITH RATE IN THE 70S. MAP HAS REMAINED ABOVE 65. DR. CHAVEZ SAW HIM THIS EVENIGN AND GAVE ORDER FOR ADDITIONAL BOLUS. PLAN FOR EGD TOMORROW SO KEEP OVERNIGHT. SPOKE WITH DR. STEVENSON AND RECEIVED ORDER FOR MAINTANENCE FLUIDS. ATTENDS CHANGED ONCE FOR A VOID THIS AFTERNOON.
[2024-11-14] MEDS ORDERED: Midodrine 5 MG Tab PO SCH (18:00)
[2024-11-14] MEDS ORDERED: Melatonin 3 MG Tab PO SCH (21:00)
[2024-11-14] MEDS ORDERED: Atorvastatin 40 MG Tab PO SCH (21:00)
[2024-11-14] MEDS ORDERED: Lactobacil 2-S.Thermo-Bifido 1 1 Cap PO SCH (21:00)
--- NOTE | 2024-11-14 21:34 | NUR ---
ASSUMED CARE OF PT AT 1900 PT RESTING ON BED, APPEARS COMFORTABLE. PT ANSWERS YES OR NO TO ALL QUESTIONS INAAPROPRIATELY. ALSO RESPONDS WITH ONE WORD SENTANCES. ORIENTED TO SELF ONLY. PT UNABLE TO TAKE PO MEDICATIONS SAFELY, WAS ABLE TO SWALLOW WATER W/OUT ISSUE. PT SNORES WHILE SLEEPING AND DESATS TO LOW 70S- PROVIDER VIOLET MATTA UPDATED AND ORDERS FOR CPAP RECIEVED. RT TO BEDSIDE TO SET UP AND PT TOLERATING WELL. PT NSR ON MONITOR- RATE OF 60S. BP STABLE W/ MAPS GREATER THAN 65. PT A FEBRILE. PT BEDDING SOILED, NEW ATTENDS AND LINENS APPLIED. CONDOM CATH PLACED. FOOT DROP AND CONTRACTURES TO BILAT LES. LR AND PROTONIX DRIPS INFUSING ORDERED. PLAN OF CARE ONGOING.
[2024-11-15] VITALS (46 sets, daily range): BP systolic 75–161; BP diastolic 37–117
[2024-11-15 03:54] LABS: BASOPHILS ABSOLUTE AUTO 0.08 K/mm3 (0.00-0.23); BASOPHILS PERCENT AUTO 0 % (0-2); EOSINOPHILS ABSOLUTE AUTO 0.32 K/mm3 (0.00-0.68); EOSINOPHILS PERCENT AUTO 2 % (0-6); Hematocrit 41.3 % (37.0-53.0); Hemoglobin 13.4 g/dL (13.5-17.5); IMMATURE GRAN ABSOLUTE AUTO 0.12 K/mm3 (0.00-0.10); IMMATURE GRAN PERCENT AUTO 1 % (0-1); LYMPHOCYTES ABSOLUTE AUTO 1.99 K/mm3 (0.84-5.20); LYMPHOCYTES PERCENT AUTO 10 % (21-46); MONOCYTES ABSOLUTE AUTO 1.14 K/mm3 (0.16-1.47); MONOCYTES PERCENT AUTO 6 % (4-13); Mean Corpuscular HGB 30.5 pg (26.0-34.0); Mean Corpuscular HGB Conc 32.4 g/dL (31.5-36.5); Mean Corpuscular Volume 94 fL (80-100); Mean Platelet Volume 9.8 fL (9.1-12.4); NEUTROPHILS ABSOLUTE AUTO 15.57 K/mm3 (1.96-9.15); NEUTROPHILS PERCENT AUTO 81 % (41-73); Platelet Count 157 K/mm3 (150-400); RDW Coefficient Variation 14.2 % (11.7-14.2); RDW Standard Deviation 49.6 fL (35.1-46.3); Red Blood Cell Count 4.39 M/mm3 (4.30-5.90); White Blood Cell Count 19.22 K/mm3 (4.00-11.30)
[2024-11-15 04:12] LABS: Albumin, Blood 2.3 g/dL (3.4-5.0); Albumin/Globulin Ratio 0.7 (0.8-1.8); Bilirubin, Total 0.6 mg/dL (0.1-1.0); Bun/Creatinine Ratio 34.7 (12.0-20.0); Calcium, Blood 7.7 mg/dL (8.5-10.1); Creatinine, Blood 1.67 mg/dL (0.60-1.20); Globulin, Blood 3.3 g/dL (2.2-4.0); Thyroid Stimulating Hormone 1.43 uIU/mL (0.360-4.800); Total Protein, Blood 5.6 g/dL (6.4-8.2)
[2024-11-15] MEDS ORDERED: Levothyroxine Sodium 0.1 MG Tab PO SCH (06:00)
[2024-11-15] MEDS ORDERED: Midodrine 5 MG Tab PO PRN (07:00)
--- NOTE | 2024-11-15 07:33 | NUR ---
NOC SHIFT SUMMARY NO ACUTE EVENTS OVERNIGHT. PT AOX1, COOPERATIVE W/ CARE. PT DESATS TO 60% WHILE SLEEPING- PROVIDER NOTIFIED AND PT PLACED ON CPAP. TRASITIONED TO BIPAP AND TOLERATING WELL. LUNG SOUNDS CLEAR. PT NSR 60-70S. BP SOFT- LEVOPHED INITIATED AT 2MCG/KG/MIN TO MAINTAIN MAP>65. NO BM THIS SHIFT. PT INCONTINENT OF BLADDER- CONDOM CATH PLACED. PT TURNED Q2 HOURS. AFEBRILE. PLAN OF CARE ONGOING
[2024-11-15] MEDS ORDERED: Vancomycin HCL 1,500 MG in NS 250 ML IV SCH (09:00)
--- NOTE | 2024-11-15 11:12 | NUR ---
Pt. is resting but responds starla I enter his ICV room. Pt. displayed evidence of intermiitant confusion, but verbalized that he had served in the [employer], and that he came from a [employer] background. While the visit was short, the Pt. welcomed prayer. Prayed for Pt. Pt. displayed evidence of somnolence after prayer. This firearms expert will remain available.
[2024-11-15] MEDS ORDERED: TPN Consult Notification XX ONE (14:05)
[2024-11-15] MEDS ORDERED: propofoL 40 ML IV ONE (15:31)
[2024-11-15] MEDS ORDERED: Lactated Ringer's 1,000 ML IV SCH (15:55)
[2024-11-15] MEDS ORDERED: EpiNEPhrine 1 MG/1 ML 1ML Vial ONE (15:58)
[2024-11-15] MEDS ORDERED: Meropenem 2,000 MG in NS 250 ML IV SCH (16:00)
[2024-11-15] MEDS ORDERED: Parenteral Electolytes 40 ML,Potassium Phosphate Dibasic 30 MM,Multivitamins 10 ML,ZINC... IV SCH (17:00)
--- NOTE | 2024-11-15 17:06 | NUR ---
11/15/24 1706 Zoie Alvarez [id number] History, Chart, Medications and Allergies reviewed before start of procedure.MONITOR INTACT WITH CONTINUOUS PULSE OXIMETRY, CONTINUOUS END TITAL CO2, AND INTERMITTENT BLOOD PRESSURE.Pre-Op teaching done. Patient verbalizes understanding WITH BROTHER ALEX. WHO ALSO SIGNS CONSENTS. PT VERY LETHARGIC. PRIOR TO START OF PROCEDURE BITE BLOCK IN POM AT 15 LITERS
--- NOTE | 2024-11-15 18:22 | NUR ---
PT A/O X1 THROUGH SHIFT. AT TIMES, INTERACTS APPROPRIATELY BUT IS NOT SUSTAINED AND BECOMES CONFUSED IN CONVERSATION OR EXHIBITS POOR MEMORY. AFEBRILE. BIPAP AT NIGHT, 2LNC TODAY, SEVERE SLEEP APNEA, PERIODS OF APNEA 30SECS, AND WILL DESAT TO 50S-70S. NSR THROUGH SHIFT, LEVO STOPPED AROUND 0900. PATIENT WENT INTO ATRIAL FIBRILLATION AFTER ENDOSCOPY AROUND 1730. NO BM. CONDOM CATHETER INTACT - 950 ML UOP FOR SHIFT. PIV LARM. PICC PLACED TO E FOR TPN. TPN STARTED AT 1800. ENDOSCOPY SHOWED SEVERAL ULCERS AND MULTIPLE BIOPSIES WERE SENT PER GI. PT REMAINS ON LR AT 150, VANC/MERREM ABX, PROTONIX GTT. BROTHER, ALEX LOGAN, AT BEDSIDE.
--- NOTE | 2024-11-15 20:00 | NUR ---
ASSUMPTION OF CARE CARE OF THIS PT ASSUMED AT 1900 FOLLOWING RECEIPT OF REPORT FROM DAY RN. PT LYING IN BED ALERT AND ORIENTED TO SELF AND PLACE. HEART IS SHOWING A FIB RHYTHM WITH RATE OF 90 WITH STABEL BP, SBP >130. PT SAT 97% ON 2L NC BUT PT HAS SEVERE SLEEP APNEA AND WILL BE PUT ON BIPAP WHEN ASLEEP. NO CHEST PAIN OR SOB. NO AB PAIN, N/V. AB FIRM BUT NOT TENDER. CONDOM CATH CAME OFF JUST BEFORE SHIFT CHANGE AND WAS REPLACED WITH PUREWICK. WILL PUT A NEW CONDOM CATH BACK ON WHEN THE PUREWICK FAILS. GOOD URINE OUTPUT. BM AT START OF SHIFT. LR INFUSING AT 150. CPN INFUSING AT 140. PROTONIX INSFUSING AT 10. SCD'S PLACED. PT HAS CALL LIGHT BUT UNSURE WHETHER HE CAN USE IT. I ALSO TOLD HIM TO CALL FOR HELP IF HE CAN'T FIND BUTTON. I WILL BE SITTING 30 FT AWAY FROM PT FOR VAST MAJORITY OF SHIFT.
[2024-11-16] VITALS (29 sets, daily range): BP systolic 103–157; BP diastolic 53–123
[2024-11-16 03:58] LABS: BASOPHILS ABSOLUTE AUTO 0.04 K/mm3 (0.00-0.23); BASOPHILS PERCENT AUTO 0 % (0-2); EOSINOPHILS ABSOLUTE AUTO 0.31 K/mm3 (0.00-0.68); EOSINOPHILS PERCENT AUTO 3 % (0-6); Hematocrit 36.7 % (37.0-53.0); Hemoglobin 12.2 g/dL (13.5-17.5); IMMATURE GRAN PERCENT AUTO 1 % (0-1); LYMPHOCYTES PERCENT AUTO 19 % (21-46); MONOCYTES ABSOLUTE AUTO 0.69 K/mm3 (0.16-1.47); MONOCYTES PERCENT AUTO 7 % (4-13); Mean Corpuscular HGB 30.5 pg (26.0-34.0); Mean Corpuscular HGB Conc 33.2 g/dL (31.5-36.5); Mean Corpuscular Volume 92 fL (80-100); Mean Platelet Volume 9.6 fL (9.1-12.4); NEUTROPHILS ABSOLUTE AUTO 7.06 K/mm3 (1.96-9.15); NEUTROPHILS PERCENT AUTO 70 % (41-73); Platelet Count 121 K/mm3 (150-400); RDW Coefficient Variation 13.7 % (11.7-14.2); RDW Standard Deviation 46.8 fL (35.1-46.3)
[2024-11-16 04:22] LABS: Alanine Aminotransfer (ALT/SGP 13 U/L (12-78); Albumin, Blood 2.2 g/dL (3.4-5.0); Albumin/Globulin Ratio 0.7 (0.8-1.8); Alk Phos 87 U/L (50-136); Anion Gap 7 mmol/L (3-11); Aspartate Aminotrans (AST/SGOT 13 U/L (12-37); Bilirubin, Total 0.4 mg/dL (0.1-1.0); Blood Urea Nitrogen 34 mg/dL (8-24); Bun/Creatinine Ratio 30.4 (12.0-20.0); CO2, Blood 30 mmol/L (21-32); Calcium, Blood 8.1 mg/dL (8.5-10.1); Chloride, Blood 112 mmol/L (98-108); Creatinine, Blood 1.12 mg/dL (0.60-1.20); Glomerular Filtration Rate 70 (60-); Glucose, Blood 189 mg/dL (70-99); Magnesium, Blood 1.8 mg/dL (1.6-2.4); Phosphorus, Blood 1.9 mg/dL (2.5-4.9); Potassium, Blood 4.1 mmol/L (3.5-5.5); Sodium, Blood 145 mmol/L (136-145); Total Protein, Blood 5.2 g/dL (6.4-8.2); Triglycerides 95 mg/dL (30-160)
[2024-11-16] MEDS ORDERED: Sodium Phosphate 20 MM in Dextrose 5% 500 ML IV ONE (05:55)
--- NOTE | 2024-11-16 07:22 | NUR ---
PT LYING IN BED ALERT AND ORIENTED TO SELF. HEART IS SHOWING A FIB RHYTHM WITH RATE IN 70'S WITH STABLE BP, SBP >130. PT SAT 98% ON 2L NC. PT HAS SEVERE SLEEP APNEA AND I WAS TOLD TO PUT ON BIPAP WHEN ASLEEP, BUT PT NEVER SLEPT. NO CHEST PAIN OR SOB. NO AB PAIN, N/V. AB FIRM BUT NOT TENDER. PT COUGHED IMMEDIATELY WHEN GIVEN A SIP OF WATER FOR MEDS EARLY IN SHIFT. SOME MEDS NOT GIVEN. THICKENED WATER WAS TESTED LATE IN SHIFT WITH SOME SUCCESS. MAY NEED EVAL. CONDOM CATH CAME OFF JUST BEFORE SHIFT CHANGE AND WAS REPLACED WITH PUREWICK. GOOD URINE OUTPUT- 1650 FOR SHIFT. BM AT START OF SHIFT. LR INFUSING AT 150. CPN INFUSING AT 140. PROTONIX INSFUSING AT 10. SCD'S ON. REOPRT GIVEN TO ONCOMING NURSE.
[2024-11-16 08:38] LABS: Vancomycin, Trough 12.4 ug/mL (5.0-10.0)
--- NOTE | 2024-11-16 09:51 | NUR ---
Spiritual Care Visit. Pt. is awake and awaiting transfer when he welcomed my visit. Pt. is pleasant and he verbalized gratitude for all of the spiritual care visits. Prayed with Pt. Pt. requested help in getting moved urgently to his commode. Attending nurse notified.
[2024-11-16] MEDS ORDERED: Vancomycin HCL 1,750 MG in NS 500 ML IV SCH (10:00)
[2024-11-16] MEDS ORDERED: Insulin Human Lispro 100 Units/ML 3ML Syringe SC SCH (12:00)
[2024-11-16] MEDS ORDERED: TPN Consult Notification XX ONE (13:05)
[2024-11-16] MEDS ORDERED: Parenteral Electolytes 40 ML,Potassium Phosphate Dibasic 30 MM,Multivitamins 10 ML,ZINC... IV SCH (17:00)
[2024-11-16] MEDS ORDERED: NS 250 ML IV PRN (17:05)
[2024-11-16] MEDS ORDERED: NS 50 ML IV ONE (17:18)
--- NOTE | 2024-11-16 18:46 | NUR ---
SUMMARY PT A/O TO SELF. CONVERSING AND INTERACTING MORE TODAY. DENIES PAIN AND NAUSEA ALL DAY. KEEPING NPO FOR TODAY, GETTING CPN. ON 2L NC. L SIDE IS FLACCID FROM PREVIOUS CVA. GOT PT TO RECLINER CHAIR FOR A FEW HOURS TODAY USING THE LIFT. NO ACUTE CHANGES.
[2024-11-16] MEDS ORDERED: Magnesium Sulf 2 GM/Water 50ML 50 ML IV ONE (19:35)
[2024-11-17] VITALS (12 sets, daily range): BP systolic 100–142; BP diastolic 54–116
[2024-11-17 03:51] LABS: BASOPHILS ABSOLUTE AUTO 0.06 K/mm3 (0.00-0.23); BASOPHILS PERCENT AUTO 1 % (0-2); EOSINOPHILS ABSOLUTE AUTO 0.41 K/mm3 (0.00-0.68); EOSINOPHILS PERCENT AUTO 4 % (0-6); Hematocrit 36.7 % (37.0-53.0); Hemoglobin 12.7 g/dL (13.5-17.5); IMMATURE GRAN ABSOLUTE AUTO 0.14 K/mm3 (0.00-0.10); IMMATURE GRAN PERCENT AUTO 2 % (0-1); LYMPHOCYTES ABSOLUTE AUTO 1.71 K/mm3 (0.84-5.20); LYMPHOCYTES PERCENT AUTO 18 % (21-46); MONOCYTES ABSOLUTE AUTO 0.64 K/mm3 (0.16-1.47); MONOCYTES PERCENT AUTO 7 % (4-13); Mean Corpuscular HGB 30.7 pg (26.0-34.0); Mean Corpuscular HGB Conc 34.6 g/dL (31.5-36.5); Mean Corpuscular Volume 89 fL (80-100); Mean Platelet Volume 9.5 fL (9.1-12.4); NEUTROPHILS ABSOLUTE AUTO 6.49 K/mm3 (1.96-9.15); NEUTROPHILS PERCENT AUTO 69 % (41-73); Platelet Count 123 K/mm3 (150-400); RDW Coefficient Variation 13.3 % (11.7-14.2); RDW Standard Deviation 43.4 fL (35.1-46.3); Red Blood Cell Count 4.14 M/mm3 (4.30-5.90); White Blood Cell Count 9.45 K/mm3 (4.00-11.30)
[2024-11-17 04:17] LABS: Albumin, Blood 2.1 g/dL (3.4-5.0); Albumin/Globulin Ratio 0.7 (0.8-1.8); Bilirubin, Total 0.4 mg/dL (0.1-1.0); Bun/Creatinine Ratio 25.4 (12.0-20.0); Calcium, Blood 7.7 mg/dL (8.5-10.1); Creatinine, Blood 0.98 mg/dL (0.60-1.20); Globulin, Blood 3.2 g/dL (2.2-4.0); Magnesium, Blood 2.2 mg/dL (1.6-2.4); Phosphorus, Blood 1.8 mg/dL (2.5-4.9); Potassium, Blood 3.9 mmol/L (3.5-5.5); Total Protein, Blood 5.3 g/dL (6.4-8.2)
--- NOTE | 2024-11-17 05:18 | NUR ---
SHIFT SUMMARY PT A/OX2, HX OF CVA. FOLLOWS COMMANDS. WILL ANSWER MOST QUESTIONS APPROPRIATLY. OCCASSIONALLY WILL SAY THINGS THAT DONT MAKE SENSE OR LAUGH IN RESPONSE TO QUESTIONS. HAS L SIDED DEFICITS, LUE AND LLE FLACCID, POOR BED MOBILITY. USES CALL LIGHT. ON 2L NC, SATS > 90. ON LEATHER TOGGLER, AFIB HR 70'S THIS SHIFT, MAPS > 65. NO BM, NO N/V THIS SHIFT. NPO FOR NOW, TPN INFUSING. PT HAD PUREWICK IN PLACE WHICH KEPT LEAKING. LINEN CHANGE X2 AND CONDOM CATH PLACED INSTEAD. PROVIDER NOTFIED OF LOW PHOS, KPHOS ORDERED FOR REPLACEMENT. PT DOES TUG ON CORDS, REMOVE BP CUFF, AND PULL OFF ECG LEADS BUT IS VERBALLY REDIRECTABLE. NO ACUTE EVENTS THIS SHIFT.
[2024-11-17] MEDS ORDERED: Potassium Phosphate Dibasic 15 MM in Dextrose 5% 250 ML IV ONE (05:30)
[2024-11-17] MEDS ORDERED: Levothyroxine Sodium 100 MCG Vial IV SCH (06:00)
[2024-11-17] MEDS ORDERED: Pantoprazole Sodium 40 MG Tab PO SCH (06:00)
[2024-11-17] MEDS ORDERED: Levothyroxine Sodium 0.1 MG Tab PO SCH ×2 (06:15→09:00)
[2024-11-17] MEDS ORDERED: Metoprolol Succinate 25 MG TABCR PO SCH (09:00)
[2024-11-17] MEDS ORDERED: Potassium Phosphate Dibasic 15 MM in Dextrose 5% 250 ML IV SCH (09:00)
[2024-11-17] MEDS ORDERED: Ipratropium/Albuterol SulF 2.5-0.5MG/3 ML Amp INH PRN (10:00)
[2024-11-17] MEDS ORDERED: Ipratropium/Albuterol SulF 2.5-0.5MG/3 ML Amp INH ONE (10:00)
[2024-11-17] MEDS ORDERED: Enoxaparin 120 MG/0.8 ML SYR SC SCH (12:00)
[2024-11-17] MEDS ORDERED: Sodium Phosphate 30 MM in Dextrose 5% 500 ML IV SCH (13:00)
[2024-11-17] MEDS ORDERED: TPN Consult Notification XX ONE (13:15)
--- NOTE | 2024-11-17 14:47 | NUR ---
PT A/O TO PERSON AND STATES "HOSPITAL" FOR PLACE. HX OF CVA, L SIDE FLACCID. ABLE TO FOLLOW COMMANDS WITH R SIDE. SPEECH IS SOMETIMES CLEAR AND OTHERS TIMES DOESN'T FOLLOW CONVERSATION. OOB TO CHAIR FOR ABOUT 3 HOURS THIS AM WITH LIFT. STARTED ON CL DIET BUT POOR APPETITE. REMAINS ON TPN. NO ACUTE CHANGES. TRANSFERED TO ROOM 333, NO SIGN OF DISTRESS.
--- NOTE | 2024-11-17 15:12 | NUR ---
ASSUMED CARE NOTE RECEIVED REPORT FROM MATTHIEU DOOLEY AND ASSUMED CARE OF PT AT APPROX 1450. PT A&O TO SELF ONLY, VSS, AND DENIED PAIN. NEW PUREWICK PLACED. MEPILEX APPLIED TO SACRUM AND BILAT HEELS. PT ORIENTED TO ROOM AND CALL LIGHT. CALL LIGHT PLACED WITHIN REACH.
[2024-11-17] MEDS ORDERED: Parenteral Electolytes 40 ML,Potassium Phosphate Dibasic 30 MM,Multivitamins 10 ML,ZINC... IV SCH (17:00)
--- NOTE | 2024-11-17 18:14 | NUR ---
SHIFT SUMMARY PT A&O TO SELF ONLY, VSS, DID NOT GET OUT OF BED AFTER TRANSFER TO THE FLOOR, TOLERATING MINIMAL PO, IS VOIDING, AND DENIED PAIN. CPN INFUSING PER ORDER. NO ACUTE CHANGES FROM PRIOR NOTE. CALL LIGHT WITHIN REACH.
[2024-11-17] MEDS ORDERED: Albuterol 2.5 MG/3 ML VIAL INH PRN (18:50)
[2024-11-17] MEDS ORDERED: Ipratropium/Albuterol SulF 2.5-0.5MG/3 ML Amp INH SCH ×2 (18:55→19:55)
[2024-11-17] MEDS ORDERED: Apixaban 5 MG Tab PO SCH (21:00)
[2024-11-17] MEDS ORDERED: Amitriptyline HCl 25 MG Tab PO SCH (21:00)
[2024-11-18 04:32] VITALS: BP 115/56
[2024-11-18 04:58] LABS: BASOPHILS ABSOLUTE AUTO 0.08 K/mm3 (0.00-0.23); BASOPHILS PERCENT AUTO 1 % (0-2); EOSINOPHILS ABSOLUTE AUTO 0.35 K/mm3 (0.00-0.68); EOSINOPHILS PERCENT AUTO 4 % (0-6); Hematocrit 38.1 % (37.0-53.0); IMMATURE GRAN ABSOLUTE AUTO 0.16 K/mm3 (0.00-0.10); IMMATURE GRAN PERCENT AUTO 2 % (0-1); LYMPHOCYTES ABSOLUTE AUTO 1.45 K/mm3 (0.84-5.20); LYMPHOCYTES PERCENT AUTO 16 % (21-46); MONOCYTES ABSOLUTE AUTO 0.56 K/mm3 (0.16-1.47); MONOCYTES PERCENT AUTO 6 % (4-13); Mean Corpuscular HGB 30.6 pg (26.0-34.0); Mean Corpuscular HGB Conc 34.1 g/dL (31.5-36.5); Mean Corpuscular Volume 90 fL (80-100); Mean Platelet Volume 9.7 fL (9.1-12.4); NEUTROPHILS ABSOLUTE AUTO 6.34 K/mm3 (1.96-9.15); NEUTROPHILS PERCENT AUTO 71 % (41-73); Platelet Count 121 K/mm3 (150-400); RDW Coefficient Variation 13.3 % (11.7-14.2); RDW Standard Deviation 43.9 fL (35.1-46.3); Red Blood Cell Count 4.25 M/mm3 (4.30-5.90); White Blood Cell Count 8.94 K/mm3 (4.00-11.30)
[2024-11-18 05:31] LABS: Albumin, Blood 2.3 g/dL (3.4-5.0); Albumin/Globulin Ratio 0.7 (0.8-1.8); Bilirubin, Total 0.6 mg/dL (0.1-1.0); Bun/Creatinine Ratio 27.5 (12.0-20.0); Calcium, Blood 8.2 mg/dL (8.5-10.1); Creatinine, Blood 1.02 mg/dL (0.60-1.20); Globulin, Blood 3.3 g/dL (2.2-4.0); Magnesium, Blood 2.3 mg/dL (1.6-2.4); Potassium, Blood 4.2 mmol/L (3.5-5.5); Total Protein, Blood 5.6 g/dL (6.4-8.2)
--- NOTE | 2024-11-18 05:39 | NUR ---
SHIFT SUMMARY PT ORIENTED TO SELF AND "HOSPITAL" WHEN AWAKE LAST EVENING. PT ANSWERS "YES" AND "NO" AND ANSWERS SOME QUESTIONS WITH 1-2 WORD ANSWERS. PT WITH HX OF A CVA WITH LEFT SIDED DEFICITS- LEFT SIDE FLACCID. PT ABLE TO FOLLOW DIRECTIONS WITH LEFT SIDE OF BODY. WHEN PT AWOKE FROM SLEEP, HE WAS COMBATIVE WITH INCREASED CONFUSION. PT PULLED OFF CONTINUOUS O2 PROBE AND TELE MONITOR MULTIPLE TIMES. PT WITH SLEEP APNEA, BUT SATS DROPPED FOR JUST A SHORT TIME ON OCCASSION TO MID 80'S AND QUICKLY BACK TO HIGH 90'S ON RA. PT TURNED AND REPOSITIONED DURING THE NIGHT. MEPELEXES INTACT TO BILAT. HEELS AND SACRUM. PT TOOK MEDICATIONS CRUSHED WITH APPLESAUCE. ALSO ATE A CONTAINER OF YOGURT LAST EVENING. PT DID NEED TO BE FED. CPN INFUSING PER ORDER. CALL LIGHT WITHIN REACH, SIDERAILS UP X2.
[2024-11-18] MEDS ORDERED: Levothyroxine Sodium 0.075 MG Tab PO SCH (06:00)
[2024-11-18] MEDS ORDERED: Apixaban 5 MG Tab PO SCH (09:00)
[2024-11-18 09:32] LABS: Bicarbonate Venous 25.1 mmol/L (24.0-30.0); PCO2 Venous 41.6 mmHg (38-42)
[2024-11-18] MEDS ORDERED: TPN Consult Notification XX ONE (11:45)
[2024-11-18] MEDS ORDERED: Furosemide 20 MG Tab PO SCH (13:00)
[2024-11-18] MEDS ORDERED: PARoxetine HCl 20 MG Tab PO SCH (14:00)
--- NOTE | 2024-11-18 15:09 | NUR ---
Spiritual care visit attempted. Pt is not responsive. Attending nurse warns of potential combative behavior if pt is awoken. Entered the room and provided a quiet prayer.
[2024-11-18 15:16] VITALS: BP 135/65
[2024-11-18] MEDS ORDERED: Parenteral Electolytes 40 ML,Potassium Phosphate Dibasic 30 MM,Multivitamins 10 ML,ZINC... IV SCH (17:00)
--- NOTE | 2024-11-18 18:20 | NUR ---
NO ACUTE CHANGES, PATIENT LETHARGIC AND HARD TO AROUSE AT TIMES, ANSWERS YES/NO, REDIRECTABLE AT TIMES AND NONCOOPERATIVE AT TIMES, CXRAY TODAY, TPN INFUSING, CPAP TO BE STARTED FOR TONIGHT FOR APNENIC BREATHING, UNABLE TO USE CALL LIGHT OR CLEARLY MAKE NEEDS KNOWN AT TIMES, CALL LIGHT WITH IN REACH, WILL RELAY TO PM RN
[2024-11-18 19:18] VITALS: BP 106/91
[2024-11-18 19:20] VITALS: BP 124/102
[2024-11-18 23:14] VITALS: BP 128/79
[2024-11-19 03:53] VITALS: BP 138/82
--- NOTE | 2024-11-19 05:35 | NUR ---
SHIFT SUMMARY PT ALERT TO SELF ONLY AND HAS BEEN WAKING U THIS SHIFT AND ANSWERING QUESTIONS. HES BEEN MORE AWAKE THIS SHIFT. HE CAN BE UNCOOPERATIVE WITH CARE BUT IF YOU TALK TO HIM AND EXPLAIN WHAT YOUR DOING HES MORE COOERATIVE. HES INC OF B&B WEARS BRIEFS. NO C/O PAIN. REMAINS ON TN AT 116. CONTINUES ON A CONTINUOUS PULSE OX AT BEDSIDE. HES BEEN COOPERATIVE WITH HIS CPA THIS SHIFT AND WORE IT MOST OF THE NIGHT. HE HAS EDEMA TO BLE HE HAS A PICC LINE TO HIS RT ARM WITH PPN INFUSING. REMAINS ON TELEMETRY AT [facility] AT 77. RESTING IN BED AT THIS TIME WITH CALL LIGHT IN REACH
[2024-11-19 07:13] VITALS: BP 112/80
[2024-11-19 08:33] LABS: BASOPHILS ABSOLUTE AUTO 0.08 K/mm3 (0.00-0.23); BASOPHILS PERCENT AUTO 1 % (0-2); EOSINOPHILS ABSOLUTE AUTO 0.53 K/mm3 (0.00-0.68); EOSINOPHILS PERCENT AUTO 5 % (0-6); Hematocrit 37.9 % (37.0-53.0); Hemoglobin 13.2 g/dL (13.5-17.5); IMMATURE GRAN ABSOLUTE AUTO 0.25 K/mm3 (0.00-0.10); IMMATURE GRAN PERCENT AUTO 3 % (0-1); LYMPHOCYTES ABSOLUTE AUTO 1.49 K/mm3 (0.84-5.20); LYMPHOCYTES PERCENT AUTO 15 % (21-46); MONOCYTES ABSOLUTE AUTO 0.81 K/mm3 (0.16-1.47); MONOCYTES PERCENT AUTO 8 % (4-13); Mean Corpuscular HGB Conc 34.8 g/dL (31.5-36.5); Mean Corpuscular Volume 89 fL (80-100); NEUTROPHILS ABSOLUTE AUTO 6.85 K/mm3 (1.96-9.15); NEUTROPHILS PERCENT AUTO 68 % (41-73); Platelet Count 111 K/mm3 (150-400); RDW Coefficient Variation 13.4 % (11.7-14.2); RDW Standard Deviation 43.6 fL (35.1-46.3); Red Blood Cell Count 4.26 M/mm3 (4.30-5.90); White Blood Cell Count 10.01 K/mm3 (4.00-11.30)
[2024-11-19 08:49] LABS: Anion Gap 9 mmol/L (3-11); Blood Urea Nitrogen 29 mg/dL (8-24); Bun/Creatinine Ratio 29.2 (12.0-20.0); CO2, Blood 25 mmol/L (21-32); Calcium, Blood 8.1 mg/dL (8.5-10.1); Chloride, Blood 110 mmol/L (98-108); Creatinine, Blood 0.99 mg/dL (0.60-1.20); Glomerular Filtration Rate 81 (60-); Glucose, Blood 164 mg/dL (70-99); Magnesium, Blood 2.2 mg/dL (1.6-2.4); Phosphorus, Blood 1.9 mg/dL (2.5-4.9); Potassium, Blood 4.3 mmol/L (3.5-5.5); Sodium, Blood 140 mmol/L (136-145); Vancomycin, Trough 15.6 ug/mL (5.0-10.0)
[2024-11-19] MEDS ORDERED: Bisacodyl 5 MG TabEC PO PRN (10:55)
[2024-11-19 15:04] VITALS: BP 111/83
[2024-11-19] MEDS ORDERED: Insulin Human Lispro 100 Units/ML 3ML Syringe SC SCH (16:30)
--- NOTE | 2024-11-19 17:56 | NUR ---
MORE ALERT TODAY, ATE ALL MEALS. COOPERATIVE TO CARE, AT TIMES BECOMES CONFUSED AND THEN VIOLENT, ONCE EVERYTHING EXPLAINED TO PATIENT HE SAYS "OK" AND SETTLES BACK DOWN, TPN DISCONTINUED DUE TO PATIENT EATING, POSSIBLE TRANSFER BACK TO [facility] ON THURSDAY, BED ALARM ON, PATIENT TRIED TO WIGGLE OUT OFF BED, PATIENT ADJUSTED BACK TO BED, CALL LIGHT WITH IN REACH, WILL RELAY TO PM RN
[2024-11-19 20:47] VITALS: BP 131/73
[2024-11-20] VITALS (8 sets, daily range): BP systolic 87–126; BP diastolic 42–79
--- NOTE | 2024-11-20 01:06 | NUR ---
Pt confused, pulling at Tele leads, and pulse ox. Answers with Yes and No to direct questions.
--- NOTE | 2024-11-20 04:37 | NUR ---
SHIFT SUMMARY PT ALERT TO SELF ONLY WITH CONFUSION HE CAN GET IRATE AT TIMES AND RESIST CARE AND MAKE THREATENING BEHAVIORS. HE REMAINS ON TELEMETRY AT A [facility] WITH [employer] AND [employer] AT 85. LUNG SOUNDS COARSE. NO C/O PAIN THIS SHIFT. HES VERY FIDGETY AND REMOVED HIS TELE STRIPS. BRIEF AND CONTINUOUS PULSE OX SEVERAL TIMES. HES TURNED AND REPOSITIONED. DRESSING INTACT TO COCCYX AND BILATERAL HEELS. REMAINS ON MEREPENEM FOR PNEUMONIA. HE USED HIS CPAP ALL NIGHT AND LEFT IT ON. HE HAS A PICC LINE TO HIS RT ARM WITH BRUISING TO AREA. HE IS DUE TO DISCHARGE BACK TO [facility] ON THURSDAY HES RESTING IN BED AT THIS TIME WITH CALL LIGHT IN REACH
[2024-11-20 06:09] LABS: BASOPHILS ABSOLUTE AUTO 0.11 K/mm3 (0.00-0.23); BASOPHILS PERCENT AUTO 1 % (0-2); EOSINOPHILS ABSOLUTE AUTO 0.39 K/mm3 (0.00-0.68); EOSINOPHILS PERCENT AUTO 4 % (0-6); Hematocrit 41.9 % (37.0-53.0); IMMATURE GRAN ABSOLUTE AUTO 0.23 K/mm3 (0.00-0.10); IMMATURE GRAN PERCENT AUTO 2 % (0-1); LYMPHOCYTES ABSOLUTE AUTO 1.03 K/mm3 (0.84-5.20); LYMPHOCYTES PERCENT AUTO 10 % (21-46); MONOCYTES ABSOLUTE AUTO 0.81 K/mm3 (0.16-1.47); MONOCYTES PERCENT AUTO 8 % (4-13); Mean Corpuscular HGB 30.4 pg (26.0-34.0); Mean Corpuscular HGB Conc 33.4 g/dL (31.5-36.5); Mean Corpuscular Volume 91 fL (80-100); Mean Platelet Volume 9.6 fL (9.1-12.4); NEUTROPHILS PERCENT AUTO 76 % (41-73); Platelet Count 125 K/mm3 (150-400); RDW Coefficient Variation 13.7 % (11.7-14.2); Red Blood Cell Count 4.61 M/mm3 (4.30-5.90); White Blood Cell Count 10.67 K/mm3 (4.00-11.30)
[2024-11-20] MEDS ORDERED: NS 250 ML IV SCH (06:15)
[2024-11-20 06:36] LABS: Albumin, Blood 2.3 g/dL (3.4-5.0); Albumin/Globulin Ratio 0.6 (0.8-1.8); Bilirubin, Total 0.6 mg/dL (0.1-1.0); Calcium, Blood 7.9 mg/dL (8.5-10.1); Creatinine, Blood 1.16 mg/dL (0.60-1.20); Globulin, Blood 3.6 g/dL (2.2-4.0); Magnesium, Blood 2.1 mg/dL (1.6-2.4); Phosphorus, Blood 1.9 mg/dL (2.5-4.9); Potassium, Blood 4.4 mmol/L (3.5-5.5); Total Protein, Blood 5.9 g/dL (6.4-8.2)
--- NOTE | 2024-11-20 06:44 | NUR ---
WENT INTO PTS ROOM AND HE WAS THROWING UP A LARGE AMOUNT WITH HIS CPAP ON. HE WAS COUGHING AND THROWING UP AT THE SAME TIME IF HE ASPIRATED HE WAS THROWING UP. HIS BP WAS 92/62 HR WENT UP TO THE 150'S PT WAS DIAPHORETIC AND PALE AND COOL TO TOUCH. TOOK CPAP OFF AND GAVE PT A DOSE OF ZOFRAN WHICH HELPED FOR A LITTLE WHILE AND NOW HES THROWING UP BROWN COLOR AGAIN. LUNG SOUNDS COARSE CALLED DR. CAMPOS AND HE GAVE ORDERS TO GET A CHEST XRAY DO A 250 BOLOS X 1 REPEAT IF BP REMAINS LOW CXR WAS DONE 1ST BOLUS WAS GIVEN. O2 SAT AT THIS TIME IS 95 ON RA HE REMAINED AWAKE AND ALERT
[2024-11-20 12:04] LABS: Hematocrit 41.6 % (37.0-53.0); Hemoglobin 14.1 g/dL (13.5-17.5)
[2024-11-20] MEDS ORDERED: Metoclopramide HCl 5MG / ML 2ML Vial IV ONE (13:00)
[2024-11-20] MEDS ORDERED: Metoclopramide HCl 5MG / ML 2ML Vial IV PRN (13:00)
[2024-11-20] MEDS ORDERED: Lactated Ringer's 1,000 ML IV SCH (14:05)
[2024-11-20 14:31] LABS: Hematocrit 40.2 % (37.0-53.0); Hemoglobin 13.6 g/dL (13.5-17.5); Mean Corpuscular HGB 30.7 pg (26.0-34.0); Mean Corpuscular HGB Conc 33.8 g/dL (31.5-36.5); Mean Corpuscular Volume 91 fL (80-100); Mean Platelet Volume 10.3 fL (9.1-12.4); Platelet Count 151 K/mm3 (150-400); RDW Coefficient Variation 13.9 % (11.7-14.2); RDW Standard Deviation 45.5 fL (35.1-46.3); Red Blood Cell Count 4.43 M/mm3 (4.30-5.90); White Blood Cell Count 12.06 K/mm3 (4.00-11.30)
[2024-11-20 14:56] LABS: Albumin, Blood 2.2 g/dL (3.4-5.0); Albumin/Globulin Ratio 0.6 (0.8-1.8); Bilirubin, Total 0.7 mg/dL (0.1-1.0); Bun/Creatinine Ratio 18.5 (12.0-20.0); Creatinine, Blood 1.3 mg/dL (0.60-1.20); Globulin, Blood 3.5 g/dL (2.2-4.0); Potassium, Blood 4.4 mmol/L (3.5-5.5); Total Protein, Blood 5.7 g/dL (6.4-8.2)
[2024-11-20] MEDS ORDERED: Pantoprazole Sodium 40 MG Injection IV SCH (16:30)
[2024-11-20 20:57] LABS: PCO2 Arterial 36.2 mmHg (35-45); PO2 Arterial 114 mmHg (80-100); pH Blood Arterial 7.41 (7.35-7.45)
--- NOTE | 2024-11-20 21:22 | NUR ---
WENT IN TO THE PTS ROOM HE WAS ON RA AND HAVING PERIODS OF APNEA AND DESATTING DOWN TO THE 70'S. WENT IN TO THE ROOM AND PUT HIM ON A MASK AT 2L AND HE WENT UP TO THE LOW 90'S. HE WAS LETHARGIC HAVING A HARD TIME STAYING AWAKE WHEN SPOKEN TO. HE HAD A VERY LARGE EMESIS THIS MORNING AND ASPIRATED CXR WAS DONE THIS AM. HIS BP WAS 87/42 FS WAS 162 CALLED RT WHO CAME DOWN TO SEE THE PT THEN WE CALLED A RAPID RESPONSE AT 2036. RAPID RESPONSE TEAM CAME UP AND EVALUATED HIM AND TRANSFERRED HIM DOWN TO THE PCU FLOOR. WENT DOWN AND GAVE REZA DOOLEY BEDSIDE REPORT.
[2024-11-20] MEDS ORDERED: Pantoprazole Sodium 40 MG Injection IV ONE (21:25)
[2024-11-20] MEDS ORDERED: Pantoprazole Sodium 40 MG in NS 50 ML IV SCH (21:25)
--- NOTE | 2024-11-20 21:29 | NUR ---
CALLED AND LEFT A MESSAGE FOR THE PTS BROTHER ALEX TO HAVE HIM CALL THE PCU FOR A UPDATE AND THAT THE PT WAS MOVED DOWN TO THE PCU
[2024-11-20 21:39] LABS: BASOPHILS ABSOLUTE AUTO 0.09 K/mm3 (0.00-0.23); BASOPHILS PERCENT AUTO 1 % (0-2); EOSINOPHILS ABSOLUTE AUTO 0.33 K/mm3 (0.00-0.68); EOSINOPHILS PERCENT AUTO 3 % (0-6); Hematocrit 40.1 % (37.0-53.0); Hemoglobin 13.5 g/dL (13.5-17.5); IMMATURE GRAN ABSOLUTE AUTO 0.27 K/mm3 (0.00-0.10); IMMATURE GRAN PERCENT AUTO 2 % (0-1); LYMPHOCYTES PERCENT AUTO 11 % (21-46); MONOCYTES ABSOLUTE AUTO 0.95 K/mm3 (0.16-1.47); MONOCYTES PERCENT AUTO 7 % (4-13); Mean Corpuscular HGB 30.6 pg (26.0-34.0); Mean Corpuscular HGB Conc 33.7 g/dL (31.5-36.5); Mean Corpuscular Volume 91 fL (80-100); Mean Platelet Volume 9.8 fL (9.1-12.4); NEUTROPHILS ABSOLUTE AUTO 10.01 K/mm3 (1.96-9.15); NEUTROPHILS PERCENT AUTO 77 % (41-73); Platelet Count 153 K/mm3 (150-400); Red Blood Cell Count 4.41 M/mm3 (4.30-5.90); White Blood Cell Count 13.05 K/mm3 (4.00-11.30)
[2024-11-20 22:00] LABS: Creatinine, Blood 1.4 mg/dL (0.60-1.20); Potassium, Blood 4.7 mmol/L (3.5-5.5)
--- NOTE | 2024-11-20 22:06 | NUR ---
UPDATE UPDATE GIVEN TO PT'S BROTHER (ALEX LOGAN) WITH TRANSFER TO [facility] FROM [facility]. ALL QUESTIONS ANSWERED, ALEX TO CALL BACK IN THE MORNING FOR PT UPDATE.
[2024-11-21] VITALS (8 sets, daily range): BP systolic 98–116; BP diastolic 44–78
--- NOTE | 2024-11-21 03:08 | NUR ---
EOS: PATIENT IS STILL A/O X 2. ABLE TO ANSWER YES NO QUESTIONS, HAS SAID A FULL SENTENCE TO MYSELF AND PSYCHOLOGICAL SCIENCE PROFESSOR. DOES PULL AT CORDS AND LINES, TELE STICKERS PLACED MULTIPLE TIMES THROUGH THE NIGHT. CAN BE AGGRESSIVE WITH STAFF, EXPLAINING CARES PRIOR HELPS WELL. NAUSEA IMPROVED AFTER REGLAN THE MOST, VSS AFEBRILE, NO BM FOR THIS RN. PROTONIX DRIP INFUSING, TKO FOR LINE MANAGEMENT. DID PASS GAS. SCD'S WORN FOR MOST OF THE SHIFT. NO ACUTE DISTRESS. CALL LIGHT WITHIN REACH. NO ACUTE CONCERNS FOR THIS RN.
[2024-11-21 03:59] LABS: Magnesium, Blood 2.2 mg/dL (1.6-2.4); Phosphorus, Blood 2.1 mg/dL (2.5-4.9)
[2024-11-21] MEDS ORDERED: Potassium Phosphate Dibasic 20 MM in Dextrose 5% 500 ML IV STA (08:27)
[2024-11-21] MEDS ORDERED: Lactated Ringer's 1,000 ML IV SCH (08:35)
[2024-11-21 08:55] LABS: BASOPHILS ABSOLUTE AUTO 0.07 K/mm3 (0.00-0.23); BASOPHILS PERCENT AUTO 1 % (0-2); EOSINOPHILS ABSOLUTE AUTO 0.52 K/mm3 (0.00-0.68); EOSINOPHILS PERCENT AUTO 5 % (0-6); Hemoglobin 12.1 g/dL (13.5-17.5); IMMATURE GRAN PERCENT AUTO 2 % (0-1); LYMPHOCYTES ABSOLUTE AUTO 1.43 K/mm3 (0.84-5.20); LYMPHOCYTES PERCENT AUTO 13 % (21-46); MONOCYTES ABSOLUTE AUTO 0.84 K/mm3 (0.16-1.47); MONOCYTES PERCENT AUTO 8 % (4-13); Mean Corpuscular HGB 30.6 pg (26.0-34.0); Mean Corpuscular HGB Conc 33.6 g/dL (31.5-36.5); Mean Corpuscular Volume 91 fL (80-100); Mean Platelet Volume 10.2 fL (9.1-12.4); NEUTROPHILS ABSOLUTE AUTO 7.97 K/mm3 (1.96-9.15); NEUTROPHILS PERCENT AUTO 72 % (41-73); Platelet Count 132 K/mm3 (150-400); RDW Coefficient Variation 14.1 % (11.7-14.2); RDW Standard Deviation 47.2 fL (35.1-46.3); Red Blood Cell Count 3.95 M/mm3 (4.30-5.90); White Blood Cell Count 11.03 K/mm3 (4.00-11.30)
--- NOTE | 2024-11-21 11:19 | NUR ---
MORNING SUMMARY THE PT IS ALERT TO SELF AND IS PLEASENTLY CONFUSED. HE DOES HAVE HX OF CVA WITH LEFT SIDED DEFICIT. HE IS LIFT TX, Q2 TURN. THE PT WAS OKAY'D FOR A CLEAR LIQUID DIET AND TOLERATED PO INTAKE WELL. HE WAS MEDICATED THIS MORNING W/ RELGAN PER EMAR. THE PT HAS BEEN PULLING AT HIS LINES AND TELE, HE HAS BEEN CAUGHT CHEWING ON HIS PICC LINE DRESSING. THE DRESSING HAS BEEN REINFORCED AND IS C/D/I. THE PT HAS BEEN AWAKE ALL MORNING AND HAS A BEDBATH W/ A SHAVE. HE IS MEDICAL STATUS AND HIS TELE WAS D/C'D. WHILE DOING A BED BATH THE PT'S COCCYX DRESSING WAS CHANGED. HE HAS A STG 1 PRESSURE SOAR. DRESSING C/D/I W/ MEPILEX. HE HAS A MALE PURWICK SET UP AND IS INC OF BOWEL. DURING ORAL CARE ABBIE WAS IDENTIFIED AND DR. STILES WAS NOTIFIED FOR [place]STAT[place]. SHE STATED SHE WOULD PLACE THE ORDER. HE SOLIS SBENE ON RA W/ SP02 >93%, NO COMPLAINTS OF SOB. NO ACUTE EVENTS THIS MORNING. SEE NOTES FOR UPDATES.
[2024-11-21] MEDS ORDERED: Nystatin 100,000 Unit/ML Susp 5 ML UDC SS SCH (13:00)
--- NOTE | 2024-11-21 17:18 | NUR ---
SHIFT SUMMARY THE PT IS A&OXSELF, HE IS LIFT ASSIST, Q2 TURN. PT REMAINS ON RA W/ SP02 >93%. HE IS W/O TELE AND BP STABLE BUT SOFT. THE PT CONTINUES TO HAS KYRA URINE OUTPUT IN THE MALE WICKING SYSTEM. NO BOWEL MOVMENT YET THIS SHIFT. HE IS TOLERATING CLEAR DIET W/O STRAW AND FEEDER ASSIST. NO ACUTE EVETNS THIS SHIFT. SEE NOTES FOR UPDATES.
[2024-11-21 17:44] LABS: Hematocrit 34.4 % (37.0-53.0); Hemoglobin 11.4 g/dL (13.5-17.5)
--- NOTE | 2024-11-21 19:25 | NUR ---
ASSUMPTION OF CARE: NO SIGNIFICANT CHANGES THROUGH THE SHIFT. OVERALL APPEARS IMPROVED BLOOD PRESSURE >65MAP.DENIES CHEST PAIN PRESSURE OR SOB,MILDLY IRRITATBLE AT TIMES, DIFFICULT TO PREFORM SOME ASSESSMENTS SUCH ABD TENDERNESS, REFUSED TO ALLOW RN TO PUSH ON ABD, DENIES FLATULENCE, NO ACUTE CONCERNS FROM THIS RN AT THIS TIME.
[2024-11-21 21:46] LABS: Hematocrit 33.7 % (37.0-53.0); Hemoglobin 11.2 g/dL (13.5-17.5)
[2024-11-22] VITALS (8 sets, daily range): BP systolic 92–138; BP diastolic 57–73
--- NOTE | 2024-11-22 03:29 | NUR ---
EOS: ONLY CHANGES FROM ASSUMPTION OF CARE IS PATIENT HAS BEEN REFUSING REPOSITIONS ORAL CARE, AND MOST CARES FROM THIS RN. EDUCATED, BUT TENDS TO GET AGITATED WITH RN, MULTIPLE ATTEMPTS THROUGH THE NIGHT, DENIES CHEST PAIN PRESSURE OR SOB VSS. PLAN OF CARE CONTINUES.
[2024-11-22 06:16] LABS: BASOPHILS ABSOLUTE AUTO 0.07 K/mm3 (0.00-0.23); BASOPHILS PERCENT AUTO 1 % (0-2); EOSINOPHILS ABSOLUTE AUTO 0.53 K/mm3 (0.00-0.68); EOSINOPHILS PERCENT AUTO 6 % (0-6); Hematocrit 34.7 % (37.0-53.0); Hemoglobin 11.7 g/dL (13.5-17.5); IMMATURE GRAN ABSOLUTE AUTO 0.15 K/mm3 (0.00-0.10); IMMATURE GRAN PERCENT AUTO 2 % (0-1); LYMPHOCYTES ABSOLUTE AUTO 1.78 K/mm3 (0.84-5.20); LYMPHOCYTES PERCENT AUTO 20 % (21-46); MONOCYTES ABSOLUTE AUTO 0.66 K/mm3 (0.16-1.47); MONOCYTES PERCENT AUTO 7 % (4-13); Mean Corpuscular HGB 30.7 pg (26.0-34.0); Mean Corpuscular HGB Conc 33.7 g/dL (31.5-36.5); Mean Corpuscular Volume 91 fL (80-100); Mean Platelet Volume 10.3 fL (9.1-12.4); NEUTROPHILS ABSOLUTE AUTO 5.92 K/mm3 (1.96-9.15); NEUTROPHILS PERCENT AUTO 65 % (41-73); Platelet Count 142 K/mm3 (150-400); RDW Coefficient Variation 14.3 % (11.7-14.2); RDW Standard Deviation 47.6 fL (35.1-46.3); Red Blood Cell Count 3.81 M/mm3 (4.30-5.90); White Blood Cell Count 9.11 K/mm3 (4.00-11.30)
[2024-11-22 06:47] LABS: Albumin, Blood 2.3 g/dL (3.4-5.0); Albumin/Globulin Ratio 0.7 (0.8-1.8); Bilirubin, Total 0.5 mg/dL (0.1-1.0); Bun/Creatinine Ratio 15.6 (12.0-20.0); Creatinine, Blood 1.28 mg/dL (0.60-1.20); Globulin, Blood 3.2 g/dL (2.2-4.0); Potassium, Blood 4.1 mmol/L (3.5-5.5); Total Protein, Blood 5.5 g/dL (6.4-8.2)
--- NOTE | 2024-11-22 11:16 | NUR ---
Spiritual Care Attempted Pt. displays evidence of being awake and alert as I enter the room then Pt. displays evidence of feigning somnolence. Pt. is not responsive. Will attempt again at a later time.
[2024-11-22] MEDS ORDERED: Apixaban 5 MG Tab PO SCH (13:00)
[2024-11-22] MEDS ORDERED: Sodium Phosphate 30 MM in Dextrose 5% 500 ML IV STA (13:07)
--- NOTE | 2024-11-22 16:59 | NUR ---
SHIFT SUMMARY PATIENT WITH NO ACUTE EVENTS DURING SHIFT. ORIENTED TO SELF. HE IS SOMEWHAT LABILE WITH MOOD, AGREABLE THIS AM WITH EVERYTHING AND THIS AFTERNOON WANTS MORE TO BE LEFT ALONE. PATIENT TURNED EVERY 2 HOURS THROUGHOUT SHIFT. HE IS TOLERATING FULL LIQUIDS AT THIS TIME, NO NAUSEA THROUGHOUT THIS SHIFT. WILL CONTINUE TO MONITOR. BED IN LOW POSITION, CALL LIGHT IN REACH, BED ALARM ON. PATIENT CAN CALL APPROPRIATELY MOST OF THE TIME TO MAKE HIS NEEDS KNOWN.
[2024-11-23 04:49] VITALS: BP 120/63
[2024-11-23 06:01] LABS: Alanine Aminotransfer (ALT/SGP 42 U/L (12-78); Albumin, Blood 2.2 g/dL (3.4-5.0); Albumin/Globulin Ratio 0.7 (0.8-1.8); Alk Phos 92 U/L (50-136); Anion Gap 8 mmol/L (3-11); Aspartate Aminotrans (AST/SGOT 18 U/L (12-37); Bilirubin, Total 0.5 mg/dL (0.1-1.0); Blood Urea Nitrogen 12 mg/dL (8-24); Bun/Creatinine Ratio 10.3 (12.0-20.0); CO2, Blood 26 mmol/L (21-32); Calcium, Blood 7.7 mg/dL (8.5-10.1); Chloride, Blood 112 mmol/L (98-108); Creatinine, Blood 1.17 mg/dL (0.60-1.20); Globulin, Blood 3.3 g/dL (2.2-4.0); Glomerular Filtration Rate 67 (60-); Glucose, Blood 178 mg/dL (70-99); Phosphorus, Blood 2.3 mg/dL (2.5-4.9); Potassium, Blood 3.9 mmol/L (3.5-5.5); Sodium, Blood 142 mmol/L (136-145); Total Protein, Blood 5.5 g/dL (6.4-8.2); Triglycerides 71 mg/dL (30-160)
--- NOTE | 2024-11-23 06:38 | NUR ---
SHIFT SUMMARY PATIENT ALERT AND ORIENTED X2. HAD NO COMPLAINTS OF PAIN OR SHORTNESS OF BREATH. ON ROOM AIR WITH SPO2 >90%. VITAL SIGNS STABLE. PATIENT MEDICATED PER EMAR FOR NAUSEA AND VOMITING. WILL CONTINUE TO MONITOR. CALL LIGHT WITHIN REACH.
[2024-11-23] MEDS ORDERED: Potassium Phosphate Dibasic 20 MM in Dextrose 5% 500 ML IV STA (07:50)
[2024-11-23 10:09] VITALS: BP 112/53
--- NOTE | 2024-11-23 11:31 | NUR ---
Spiritual Care Visit. Pt. is awake when I enter the room. Pt. was guarded at responding at the beginning of the visit. When I thanked him for his service ([place]) the Pt. began to be more verbally engaged. We also considered matters of james and belief. Listened with interest and empathy. Prayed with the Pt. Will remain available to the Pt.
[2024-11-23] MEDS ORDERED: AMOCLA875 PO (15:35)
[2024-11-23] MEDS ORDERED: ELIQUIS5 M2 PO (15:35)
[2024-11-23] MEDS ORDERED: PANT40 PO (15:36)
[2024-11-23] MEDS ORDERED: TOPROL XL25 MG PO (15:36)
[2024-11-23] MEDS ORDERED: VISBIOME 112.51 EACH PO (15:37)
[2024-11-23 16:04] VITALS: BP 114/58
[2024-11-23] MEDS ORDERED: Pantoprazole Sodium 40 MG Tab PO SCH (16:30)
--- NOTE | 2024-11-23 17:52 | NUR ---
SHIFT SUMMARY PT A&O TO SELF AND PERSON. STATES THAT HE IS AT [facility]. HAS OUTBURSTS AND REQUIRES REDIRECTION BUT IS COOPERATIVE WITH CARE FOR THE MOST PART. L SIDED DEFICITS D/T Hx OF CVA. BP STABLE, NO TELE, DENIES CP/PRESSURE. SpO2> 92% RA, DENIES SOB. PT TOLERATED MINCED & MOIST DIET WITH FEEDIN ASSISTANCE. Q2 TURNS PROVIDED. NO OTHER EVENTS, WILL REPORT TO [facility] RN.
--- NOTE | 2024-11-23 18:43 | NUR ---
DISCHARGE SUMMARY SEE PREVIOUS NOTE. NO ACUTE CHANGES. REPORT GIVEN TO FAISAL CUMMINS RN. PT TRANSFERED TO [facility] BY 4 CLINICAL STAFF MEMBERS. PT TRANSFERED WITH ALL PT BELONGINGS AT APPROXIMATELY 1815.
== END 2024-11-23 18:15 | DRG 871 ==
LOC: ER 23:19 → ERHOLD 11-14 02:40 → MEDS 11-14 02:40 → ICUE 11-14 02:40 → MEDS 11-14 04:00 → ICUE 11-14 11:03 → MEDS 11-17 14:48 → PCU 11-20 20:54
PROVIDERS: Emergency Medicine; Hospitalist; Internal Medicine Gastroenterology; Student in an Organized Health Care Education/Training Program; ADMIT Internal Medicine
PROC: 3E033XZ Introduction of Vasopressor into Peripheral Vein, Percutaneous Approach (ICD-10-PCS; 2024-11-13)
PROC: 3E03329 Introduction of Other Anti-infective into Peripheral Vein, Percutaneous Approach (ICD-10-PCS; 2024-11-14)
PROC: 0D9670Z Drainage of Stomach with Drainage Device, Via Natural or Artificial Opening (ICD-10-PCS; 2024-11-15)
PROC: 3E0336Z Introduction of Nutritional Substance into Peripheral Vein, Percutaneous Approach (ICD-10-PCS; 2024-11-15)
PROC: 5A09557 Assistance with Respiratory Ventilation, Greater than 96 Consecutive Hours, Continuous Positive Airway Pressure (ICD-10-PCS; 2024-11-15)
PROC: 0DB68ZX Excision of Stomach, Via Natural or Artificial Opening Endoscopic, Diagnostic (ICD-10-PCS; principal; 2024-11-15 15:00)
PROC: 4A033R1 Measurement of Arterial Saturation, Peripheral, Percutaneous Approach (ICD-10-PCS; 2024-11-20)
DX: A41.9 Sepsis, unspecified organism (principal); J69.0 Pneumonitis due to inhalation of food and vomit; N18.6 End stage renal disease; K25.4 Chronic or unspecified gastric ulcer with hemorrhage; I12.0 Hypertensive chronic kidney disease with stage 5 chronic kidney disease or end stage renal disease; I69.954 Hemiplegia and hemiparesis following unspecified cerebrovascular disease affecting left non-dominant side; M30.0 Polyarteritis nodosa; N17.9 Acute kidney failure, unspecified; E87.21 Acute metabolic acidosis; R65.20 Severe sepsis without septic shock; E11.22 Type 2 diabetes mellitus with diabetic chronic kidney disease; F41.9 Anxiety disorder, unspecified; K21.9 Gastro-esophageal reflux disease without esophagitis; E78.00 Pure hypercholesterolemia, unspecified; J44.9 Chronic obstructive pulmonary disease, unspecified; Z96.642 Presence of left artificial hip joint; E11.65 Type 2 diabetes mellitus with hyperglycemia; N28.1 Cyst of kidney, acquired; F32.A Depression, unspecified; E03.9 Hypothyroidism, unspecified; E83.39 Other disorders of phosphorus metabolism; K29.70 Gastritis, unspecified, without bleeding; I48.91 Unspecified atrial fibrillation; G47.33 Obstructive sleep apnea (adult) (pediatric); Z79.4 Long term (current) use of insulin; Z79.82 Long term (current) use of aspirin; Z79.890 Hormone replacement therapy; Z79.891 Long term (current) use of opiate analgesic; Z79.51 Long term (current) use of inhaled steroids; Z99.2 Dependence on renal dialysis; Z79.899 Other long term (current) drug therapy; Z95.1 Presence of aortocoronary bypass graft; Z87.891 Personal history of nicotine dependence; Z79.84 Long term (current) use of oral hypoglycemic drugs; Z98.890 Other specified postprocedural states
CPT/HCPCS: 36415; 36569; 36600; 71045; 74177; 80048; 80053; 80202; 81001; 82533; 82803; 82947; 83036; 83605; 83690; 83735; 83880; 84100; 84443; 84478; 85014; 85018; 85025; 85027; 85610; 87040; 88305; 88342; 92526; 92610; 93005; 93010; 93306; 94640; 94660; 94664; 94760; 94762; 97110; 97162; 99285-25; A9270; C1751; J0171; J1650; J2185; J2405; J2470; J2543; J2704; J2765; J3010; J3370; J3411; J3475; J7030; J7040; J7050; J7060; J7070; J7120; Q9967